=== PATIENT | female | born 1935 | race Caucasian/White ===

== ENCOUNTER 2017-11-05 14:48 | Emergency (ER) | payer MEDICARE, OTHER ==
[2017-11-05] MEDS ORDERED: Naproxen 500 MG Tab PO ONE (15:45)
[2017-11-05] MEDS ORDERED: Cyclobenzaprine 10 MG Tab PO ONE (15:45)
[2017-11-05] MEDS ORDERED: Ondansetron 4 MG Tab.DIS PO ONE (15:46)
[2017-11-05] MEDS ORDERED: Morphine 2 MG/ML Syringe IM ONE (15:46)
[2017-11-05] MEDS ORDERED: predniSONE 20 MG Tab PO ONE (15:46)
[2017-11-05 17:15] LABS: CHLORIDE,CL 108 mmol/L (98-107); SODIUM,NA 143 mmol/L (136-145)
[2017-11-05 17:19] LABS: ANION GAP 10.6 mmol/L (10-20)
[2017-11-05] MEDS ORDERED: Take Home: predniSONE 20 MG, 2 Tab Pack PO ONE (17:24)
[2017-11-05] MEDS ORDERED: Take Home: Cyclobenzaprine 10 MG Tab, 4 Tab Pack PO ONE (17:24)
[2017-11-05] MEDS ORDERED: Take Home: Acetaminophen/HYDROcodone 325-10 MG, 5 Tab Pack PO ONE (17:24)
--- NOTE | 2017-11-05 17:26 | EDM.PDOC ---
ED HPI GENERAL MEDICAL PROBLEM - General Chief Complaint: Back Pain or Injury Stated Complaint: er Time Seen by Provider: 11/05/17 15:16 Source of Information: Reports: Patient, EMS Notes Reviewed, Family History Limitations: Reports: No Limitations - History of Present Illness INITIAL COMMENTS - FREE TEXT/NARRATIVE: Patient states she has had progressively worsening back pain since she started using a walker that does not have front wheels. She states she uses that because her knees hurt. She thinks her back is reacting to having to pick pulling machine operator the walker with each step as well as having to pack it. She has no other complaints today. Her pain is to the point that EMS was called to bring her in and she is afraid that she will fall. Onset: Gradual Duration: Getting Worse Severity: Severe Improves with: Reports: Medication Associated Symptoms: Reports: No Other Symptoms Lower Back Pain Score (Numeric/FACES): 3 - Related Data Allergies Allergy/AdvReac Type Severity Reaction Status Date / Time No Known Allergies Allergy Verified 11/05/17 16:36 Home Meds: Home Meds . [No Known Home Meds] 11/05/17 [History] ED ROS GENERAL - Review of Systems Review Of Systems: See Below Constitutional: Reports: No Symptoms HEENT: Reports: No Symptoms Respiratory: Reports: No Symptoms Cardiovascular: Reports: No Symptoms Endocrine: Reports: No Symptoms GI/Abdominal: Reports: No Symptoms : Reports: No Symptoms Musculoskeletal: Reports: Back Pain Skin: Reports: No Symptoms Neurological: Reports: Difficulty Walking Psychiatric: Reports: No Symptoms Hematologic/Lymphatic: Reports: No Symptoms Immunologic: Reports: No Symptoms ED EXAM,LOWER BACK PAIN/INJURY - Physical Exam Exam: See Below Exam Limited By: No Limitations General Appearance: Alert, WD/WN, Moderate Distress Eye Exam: Bilateral Eye: EOMI, PERRL Ears: Normal TMs Neck: Normal Inspection, Supple, Non-Tender, Full Range of Motion Respiratory/Chest: No Respiratory Distress, Lungs Clear, Normal Breath Sounds, No Accessory Muscle Use, Chest Non-Tender Cardiovascular: Normal Peripheral Pulses, Regular Rate, Rhythm, No Edema, No Gallop, No JVD, No Murmur, No Rub GI/Abdominal: Normal Bowel Sounds, Soft, Non-Tender, No Organomegaly, No Distention, No Abnormal Bruit, No Mass Extremities: Leg Pain Neurological: Alert, Normal Mood/Affect, Oriented x 3, Straight Leg Raise (L), Straight Leg Raise (R) Psychiatric: Normal Mood, Anxious Skin Exam: Warm, Dry, Intact Lymphatic: No Adenopathy Course - Vital Signs Last Recorded V/S: Last Vital Signs Temp 37.0 C 11/05/17 14:55 Pulse 78 11/05/17 14:55 Resp 20 11/05/17 14:55 BP 147/90 H 11/05/17 14:55 Pulse Ox - Orders/Labs/Meds Orders: Active Orders 24 hr Category Date Time Status Lumbar Spine wo Cont [CT] Stat Exams 11/05/17 15:23 Taken Labs: Laboratory Tests 11/05/17 11/05/17 Range/Units 16:43 16:43 WBC 6.0 (4.0-10.0) x10^3/uL RBC 4.41 (4.00-5.50) x10^6/uL Hgb 12.5 (12.0-16.0) g/dL Hct 37.8 (33.0-47.0) % MCV 85.7 (78.0-93.0) fL MCH 28.3 (26.0-32.0) pg MCHC 33.1 (32.0-36.0) g/dL RDW Coeff of Edinson 16.8 H (10.0-15.0) % Plt Count 128 L (130-400) x10^3/uL Neut % (Auto) 66.8 (50.0-80.0) % Lymph % (Auto) 20.0 L (25.0-50.0) % [place] % (Auto) 10.7 (2.0-11.0) % Eos % (Auto) 2.2 (0.0-4.0) % Baso % (Auto) 0.3 (0.2-1.2) % Sodium 143 (136-145) mmol/L Potassium 3.6 (3.5-5.1) mmol/L Chloride 108 H (98-107) mmol/L Carbon Dioxide 28 (21-32) mmol/L Anion Gap 10.6 (10-20) mmol/L BUN 14 (7-18) mg/dL Creatinine 0.5 L (0.55-1.02) mg/dL Est Cr Clr Drug Dosing TNP Estimated GFR (MDRD) > 60 Glucose 89 (74-106) mg/dL Calcium 7.5 L (8.5-10.1) mg/dL Corrected Calcium 8.70 (8.5-10.1) mg/dL Total Bilirubin 0.3 (0.2-1.0) mg/dL AST 24 (15-37) U/L ALT 19 (14-59) U/L Alkaline Phosphatase 125 H (46-116) U/L Total Protein 6.1 L (6.4-8.2) g/dL Albumin 2.5 L (3.4-5.0) g/dL Globulin 3.6 Albumin/Globulin Ratio 0.69 Meds: Medications Discontinued Medications Generic Name Dose Route Start Last Admin Trade Name Freq PRN Reason Stop Dose Admin Hydrocodone Bitart/Acetaminophen 2 packet 11/05/17 17:24 11/05/17 18:17 Take Home: Acetaminophen/Hydrocodone 325-10mg PO 11/05/17 17:25 2 packet ONETIME ONE Administration Cyclobenzaprine HCl 10 mg 11/05/17 15:45 11/05/17 16:06 Flexeril PO 11/05/17 15:46 10 mg ONETIME ONE Administration Cyclobenzaprine HCl 2 packet 11/05/17 17:24 11/05/17 18:18 Take Home: Cyclobenzaprine 10 Mg, 4 Tab Pack PO 11/05/17 17:25 2 packet ONETIME ONE Administration Morphine Sulfate 2 mg 11/05/17 15:46 11/05/17 16:05 Morphine IM 11/05/17 15:47 2 mg ONETIME ONE Administration Naproxen 500 mg 11/05/17 15:45 11/05/17 16:07 Naprosyn PO 11/05/17 15:46 500 mg ONETIME ONE Administration Ondansetron HCl 4 mg 11/05/17 15:46 11/05/17 16:06 Zofran Odt PO 11/05/17 15:47 4 mg ONETIME ONE Administration Prednisone 40 mg 11/05/17 15:46 11/05/17 16:07 Prednisone PO 11/05/17 15:47 40 mg ONETIME ONE Administration Prednisone 2 packet 11/05/17 17:24 11/05/17 18:18 Take Home: Prednisone 20 Mg, 2 Tab Pack PO 11/05/17 17:25 2 packet ONETIME ONE Administration Departure - Departure Time of Disposition: 17:46 Disposition: Home, Self-Care 01 Condition: Fair Clinical Impression: Degenerative disc disease, lumbar - Discharge Information Instructions: Degenerative Disk Disease, Back Pain, Adult, [id number], Pain Medicine Instructions, [id number] Referrals: Justa Hodge DO [Primary Care Provider] - Forms: ED Department Discharge Additional Instructions: Alternate heat with ice on your back. You can also try a warm bath for pain relief. I have prescribed you hydrocodone for pain, flexeril for muscle spasms, and prednisone to reduce inflammation. I would also like you to take 600-800 mg of ibuprofen every 8 hours. Medication instructions: hydrocodone: 1/2-1 tablet every 4-6 hours by mouth Flexeril/cyclobenzaprine: take 1 table every 8 hours Prednisone: take 20 mg twice daily with food You may need to follow up with your primary doctor for additional complaints. I suggest a front wheeled walker. Try to walk and move as much as you can tolerate. Your back and muscles will get stiff otherwise and hurt more. Stay well hydrated. Call with any questions or concerns. - Problem List & Annotations (1) Degenerative disc disease, lumbar SNOMED Code(s): 45424745 Code(s): M51.36 - OTHER INTERVERTEBRAL DISC DEGENERATION, LUMBAR REGION Status: Acute Priority: Low - Problem List Review Problem List Initiated/Reviewed/Updated: Yes - My Orders Last 24 Hours: My Active Orders 11/05/17 15:23 Lumbar Spine wo Cont [CT] Stat - Assessment/Plan Last 24 Hours: My Active Orders 11/05/17 15:23 Lumbar Spine wo Cont [CT] Stat Assessment:: lumbar degenerative disc disease Plan: Alternate heat with ice on your back. You can also try a warm bath for pain relief. I have prescribed you hydrocodone for pain, flexeril for muscle spasms, and prednisone to reduce inflammation. I would also like you to take 600-800 mg of ibuprofen every 8 hours. Medication instructions: hydrocodone: 1/2-1 tablet every 4-6 hours by mouth Flexeril/cyclobenzaprine: take 1 table every 8 hours Prednisone: take 20 mg twice daily with food You may need to follow up with your primary doctor for additional complaints. I suggest a front wheeled walker. Try to walk and move as much as you can tolerate. Your back and muscles will get stiff otherwise and hurt more. Stay well hydrated. Call with any questions or concerns.
== END 2017-11-05 18:35 | disposition home or self-care (01) ==
LOC: VM.ED 14:48
DX: M51.36 Other intervertebral disc degeneration, lumbar region (principal)
CPT/HCPCS: 36415; 72131; 80053; 85025; 96372; 99284; A9270-GY; J2270

== ENCOUNTER 2017-11-07 11:25 | Observation (INO) | payer MEDICARE, OTHER ==
[2017-11-07 14:12] LABS: CHLORIDE,CL 109 mmol/L (98-107); SODIUM,NA 141 mmol/L (136-145)
[2017-11-07 14:16] LABS: ANION GAP 7.6 mmol/L (10-20)
[2017-11-07] MEDS ORDERED: Acetaminophen/HYDROcodone 325-5 MG Tab PO ONE (14:16)
--- NOTE | 2017-11-07 15:45 | EDM.PDOC ---
ED HPI GENERAL MEDICAL PROBLEM - General Chief Complaint: Lower Extremity Injury/Pain Stated Complaint: ER Time Seen by Provider: 11/07/17 11:41 Source of Information: Reports: Patient, Family, RN Notes Reviewed History Limitations: Reports: No Limitations - History of Present Illness INITIAL COMMENTS - FREE TEXT/NARRATIVE: Pt. relates that she is experiencing low back, R hip, and R knee pain. She was seen in the ER for the same on 11/05. She underwent a CT scan of her L spine which showed numerous levels of lumbar disk herniation. She was discharged with hydrocodone, cyclobenzaprine, and prednisone. She states that this has helped her discomfort, but the discomfort was quite severe today. She states that she was unable to get off the couch and had to call 911. Pt. doesn't utilize healthcare often, particularly preventative medicine. She was recently seen in the clinic and found to have a low heart rate but would not allow a workup. Pt. denies any trauma. She states that she has not fallen. Duration: Constant, Getting Worse Location: Reports: Back Quality: Reports: Sharp Severity: Severe Right Knee Pain Score (Numeric/FACES): 8 Lower Back Pain Score (Numeric/FACES): 8 - Related Data Allergies Allergy/AdvReac Type Severity Reaction Status Date / Time lorazepam Allergy Edema Verified 11/07/17 11:54 mirtazapine Allergy Cannot Verified 11/07/17 11:54 Remember Home Meds: Home Meds Aspirin 81 mg PO DAILY 11/07/17 [History] Calcium Carbonate/Vitamin D3 [Calcium 500 + Vit D Caplet] 1 each PO DAILY [History] Multivitamin [Multivitamins] 1 each PO DAILY 11/07/17 [History] Past Medical History HEENT History: Reports: Cataract, Other (See Below) Other HEENT History: presbyopia Cardiovascular History: Reports: Other (See Below) Other Cardiovascular History: irregular heart rhythm. peripheral edema Respiratory History: Reports: None Gastrointestinal History: Reports: Other (See Below) Other Gastrointestinal History: abnormal results of liver function study Genitourinary History: Reports: None FEED RESEARCH AIDE History: Reports: None Musculoskeletal History: Reports: Osteoporosis, Other (See Below) Other Musculoskeletal History: weakness Neurological History: Reports: None Psychiatric History: Reports: Anxiety Endocrine/Metabolic History: Reports: Other (See Below) Other Endocrine/Metabolic History: folate deficiency anemia Hematologic History: Reports: Other (See Below) Other Hematologic History: folate deficiency anemia Oncologic (Cancer) History: Reports: Breast Dermatologic History: Reports: None - Past Surgical History Head Surgeries/Procedures: Reports: None Respiratory Surgical History: Reports: None GI Surgical History: Reports: None Female Surgical History: Reports: Other (See Below) Other Female Surgeries/Procedures: Right breast removed 20 - 25 years ago. Endocrine Surgical History: Reports: None Neurological Surgical History: Reports: None Musculoskeletal Surgical History: Reports: None Oncologic Surgical History: Reports: Mastectomy Social & Family History - Tobacco Use Smoking Status *Q: Current Every Day Smoker Years of Tobacco use: 20 Packs/Tins Daily: 0.5 - Caffeine Use Caffeine Use: Reports: Coffee - Recreational Drug Use Recreational Drug Use: No Review of Systems - Review of Systems Review Of Systems: See Below Constitutional: Reports: Weakness Eyes: Reports: No Symptoms Ears: Reports: No Symptoms Nose: Reports: No Symptoms Mouth/Throat: Reports: No Symptoms Respiratory: Reports: No Symptoms Cardiovascular: Reports: No Symptoms GI/Abdominal: Reports: No Symptoms Genitourinary: Reports: No Symptoms Musculoskeletal: Reports: Back Pain Skin: Reports: No Symptoms Neurological: Reports: Paresthesia, Other (R lower extremity) Psychiatric: Reports: No Symptoms ED EXAM, GENERAL - Physical Exam Exam: See Below General Appearance: Alert, WD/WN, No Apparent Distress Throat/Mouth: Normal Inspection, Normal Lips, Normal Teeth, Normal Gums, Normal Oropharynx, Normal Voice, No Airway Compromise Head: Atraumatic, Normocephalic Neck: Normal Inspection, Supple, Non-Tender, Full Range of Motion Respiratory/Chest: No Respiratory Distress, Lungs Clear, Normal Breath Sounds, No Accessory Muscle Use, Chest Non-Tender Cardiovascular: Normal Peripheral Pulses, Regular Rate, Rhythm, No Edema, No Gallop, No JVD, No Murmur, No Rub GI/Abdominal: Normal Bowel Sounds, Soft, Non-Tender, No Distention, No Mass, Pelvis Stable (Female) Exam: Deferred Rectal (Female) Exam: Deferred Back Exam: Muscle Spasm, Paraspinal Tenderness, Vertebral Tenderness Extremities: Limited Range of Motion (pain with straight leg raise on the R. Also has knee pain. No deformity. CMS intact. No swelling/ecchymosis), Pallor Neurological: Alert, Oriented, CN II-XII Intact, Confused, Slow to Respond, Other (slow to respond since getting prehospital dilaudid) Psychiatric: Normal Affect, Normal Mood Skin Exam: Warm, Dry, Intact, Normal Color, No Rash Lymphatic: No Adenopathy EKG INTERPRETATION Rhythm: NSR EKG Interpretation Comments: Sinus rhythm with bigeminal unifocal PVCs Course - Vital Signs Last Recorded V/S: Last Vital Signs Temp 36.8 C 11/07/17 14:27 Pulse 89 11/07/17 14:27 Resp 18 11/07/17 14:27 BP 157/69 H 11/07/17 14:27 Pulse Ox 100 11/07/17 14:27 - Orders/Labs/Meds Orders: Active Orders 24 hr Category Date Time Status Patient Status [ADT] Routine ADT 11/07/17 14:14 Active EKG Documentation Completion [RC] STAT Care 11/07/17 13:31 Active Hip Min 2V or 3V w Pelvis Rt [CR] Stat Exams 11/07/17 12:14 Taken Knee 3V Rt [CR] Stat Exams 11/07/17 12:15 Taken Medication Orders Hydrocodone Bitart/Acetaminophen (Ackerly 325-5 Mg) 1 tab PO Q4H PRN PRN Reason: Pain Aspirin (Aspirin) 81 mg PO DAILY ECTOR Calcium Carbonate (Calcium Carbonate/Vitamin D 1250 Mg-200 Unit) 1 tab PO DAILY ECTOR Vitamin B Complex/Vit C/Vit E/Zinc (Stress Formula With Zinc) 1 tab PO DAILY ECTOR Labs: Laboratory Tests 11/07/17 11/07/17 11/07/17 Range/Units 13:40 13:40 13:40 WBC 9.6 (4.0-10.0) x10^3/uL RBC 4.08 (4.00-5.50) x10^6/uL Hgb 11.5 L (12.0-16.0) g/dL Hct 35.9 (33.0-47.0) % MCV 88.0 (78.0-93.0) fL MCH 28.2 (26.0-32.0) pg MCHC 32.0 (32.0-36.0) g/dL RDW Coeff of Edinson 16.9 H (10.0-15.0) % Plt Count 135 (130-400) x10^3/uL Neut % (Auto) 83.4 H (50.0-80.0) % Lymph % (Auto) 8.8 L (25.0-50.0) % [place] % (Auto) 7.4 (2.0-11.0) % Eos % (Auto) 0.3 (0.0-4.0) % Baso % (Auto) 0.1 L (0.2-1.2) % PT 22.6 H (9.6-11.4) SEC INR 2.2 (2.0-3.5) Sodium 141 (136-145) mmol/L Potassium 3.6 (3.5-5.1) mmol/L Chloride 109 H (98-107) mmol/L Carbon Dioxide 28 (21-32) mmol/L Anion Gap 7.6 L (10-20) mmol/L BUN 31 H (7-18) mg/dL Creatinine 0.6 (0.55-1.02) mg/dL Est Cr Clr Drug Dosing TNP Estimated GFR (MDRD) > 60 Glucose 89 (74-106) mg/dL Calcium 7.2 L (8.5-10.1) mg/dL Corrected Calcium 8.56 (8.5-10.1) mg/dL Phosphorus 2.7 (2.6-4.7) mg/dL Magnesium 1.7 L (1.8-2.4) mg/dL Total Bilirubin 0.3 (0.2-1.0) mg/dL AST 19 (15-37) U/L ALT 16 (14-59) U/L Alkaline Phosphatase 109 (46-116) U/L Troponin I < 0.017 (<=0.056) ng/mL Total Protein 5.6 L (6.4-8.2) g/dL Albumin 2.3 L (3.4-5.0) g/dL Globulin 3.3 Albumin/Globulin Ratio 0.70 Meds: Medications Generic Name Dose Route Start Last Admin Trade Name Freq PRN Reason Stop Dose Admin Hydrocodone Bitart/Acetaminophen 1 tab 11/07/17 15:09 Ackerly 325-5 Mg PO Q4H PRN Pain Aspirin 81 mg 11/08/17 08:00 Aspirin PO DAILY ECTOR Calcium Carbonate 1 tab 11/08/17 08:00 Calcium Carbonate/Vitamin D 1250 Mg-200 Unit PO DAILY ECTOR Vitamin B Complex/Vit C/Vit E/Zinc 1 tab 11/08/17 08:00 Stress Formula With Zinc PO DAILY ECTOR Discontinued Medications Generic Name Dose Route Start Last Admin Trade Name Delbert PRN Reason Stop Dose Admin Hydrocodone Bitart/Acetaminophen 1 tab 11/07/17 14:16 11/07/17 14:33 Ackerly 325-5 Mg PO 11/07/17 14:17 1 tab ONETIME ONE Administration Departure - Departure Time of Disposition: 14:39 Disposition: Refer to Observation Clinical Impression: Lumbar back pain with radiculopathy affecting right lower extremity, Bradycardia - Discharge Information - My Orders Last 24 Hours: My Active Orders 11/07/17 12:14 Hip Min 2V or 3V w Pelvis Rt [CR] Stat 11/07/17 12:15 Knee 3V Rt [CR] Stat 11/07/17 13:31 EKG Documentation Completion [RC] STAT 11/07/17 14:14 Patient Status [ADT] Routine - Assessment/Plan Last 24 Hours: My Active Orders 11/07/17 12:14 Hip Min 2V or 3V w Pelvis Rt [CR] Stat 11/07/17 12:15 Knee 3V Rt [CR] Stat 11/07/17 13:31 EKG Documentation Completion [RC] STAT 11/07/17 14:14 Patient Status [ADT] Routine Plan: Pt. will be admitted observation. She does not meet acute criteria. She is a code level 1. PT and OT to follow. Social work consult.
[2017-11-07] MEDS: Acetaminophen/HYDROcodone 325-5 MG Tab PO PRN (22:37)
[2017-11-08] MEDS: Aspirin 81 MG Tab.Chew PO SCH (09:03)
[2017-11-08] MEDS: Calcium Carbonate/Vitamin D3 1250 MG-200 Unit Tab PO SCH (09:03)
[2017-11-08] MEDS: Phytonadione 100 MCG Tab PO SCH (09:03)
[2017-11-08] MEDS: Multivitamin, Stress Formula with Zinc Tab PO SCH (09:03)
[2017-11-08] MEDS: Acetaminophen/HYDROcodone 325-5 MG Tab PO PRN ×2 (09:03→21:42)
[2017-11-08] MEDS: Ibuprofen 200 MG Tab PO SCH ×3 (14:59→19:43)
[2017-11-08] MEDS ORDERED: Triamcinolone Acetonide 40 MG/ML 1 ML MDV INJECT ONE (16:56)
[2017-11-08] MEDS ORDERED: Lidocaine 2% 10 ML Amp INJECT ONE (16:57)
--- NOTE | 2017-11-08 17:50 | OR ---
After discussing the risks and goals of a right knee injection, the area was prepped with ChloraPrep and 1% lidocaine was injected for local anesthesia. I then injected 40 mg of Kenalog and 3 mL of lidocaine into the joint space. The patient was having some tenderness during the procedure. She seemed otherwise tolerated okay, as she was quite agitated with just even touching the knee. She is given instructions to rest and ice the knee over the next 48 hours. MKA: 11/08/2017 17:38:51 MODL: 11/08/2017 17:45:13 /[id number]
--- NOTE | 2017-11-08 18:00 | PN ---
Progress Note for JEOVANNY PATEL Date: 11/08/2017 Room #: VM.217 SUBJECTIVE: This is hospital day #2 for an 82-year-old admitted yesterday with knee pain, back pain, and difficulty managing at home. The patient was just in the ER on 11/05. She had not have any falls, but had significant back pain. She had a back CT, which demonstrated her to have advanced degenerative changes at multiple levels. She states her knees, she cannot even bend it. It is so tender when you even touch it. It is not red or swollen. She has not had any fever or chills. She does have a history of anxiety and gets medical care very infrequently through Eden Hodge in the clinic. Otherwise, there was some reports of slow heart rate for her down into even the 30s. However, on telemetry, she has not had any events and slowest recorded heart rate this morning was about 59. PT did see her and they felt that she would require a knee injection and some more care as right now currently, she could not return home. She states using the walker because of her knee pain is what caused her back pain. OBJECTIVE: Vital Signs: Her temperature is 97.9, pulse 62, blood pressure 139/52, respiratory rate 16, and O2 96% on room air. General: She is in no acute distress. Heart: Regular rate and rhythm. S1, S2 without murmur. Lungs: Sounds are clear to auscultation bilaterally without crackles or wheezes. Extremities: Warm and dry. No edema. She has significant tenderness to palpation especially over the medial right knee, but no swelling, effusion, or warmth. Mental status: She is alert. She is orientated x3. She did remember that I was her previous doctor several years ago. LAB WORK: Yesterday, white count normal 9.6. Her INR was elevated at 2.2 despite not being on Coumadin. Sodium 141, potassium 3.6, chloride 109, BUN 31, creatinine 0.6, magnesium 1.7, and albumin 2.3. ASSESSMENT: 1. Severe right knee pain with some osteoarthritis by x-ray. Difficult to tell due to the positioning. However, I think it would be reasonable to try cortisone injection. 2. Back pain with degenerative arthritis. Could consider an HI, but she is not having any radicular symptoms. I think we will treat her with therapy. 3. Hypomagnesemia. We will replace orally. It might help some of her aches and pains. 4. Elevated INR, could be due to some malnutrition. We will start her on low- dose vitamin K. 5. Moderate malnutrition. She is very thin and frail. She most definitely has underlying osteoporosis. We will encourage good oral intake. 6. Mild anemia. We will repeat lab work tomorrow. 7. History of anxiety. She currently lives at home with her . PLAN: At this point, the patient will continue on observation care, with hopeful she could return home this evening. However, she does not feel like she will be able to. She will continue with telemetry to ensure no bradycardia. We will repeat lab work in the morning. We will replace electrolytes. She is on hydrocodone as needed for pain control and she took only one last evening and one this morning, so we will continue to monitor that closely. I would be concerned about too many NSAIDs given her age and frailty, but she did get a Motrin scheduled this afternoon and we could certainly do that for the next 2 days to see if it gets her up and moving. She elects to be a code level 1. The potential is that she may need to go over to self-pay swing or at least home with home health tomorrow. Dr. Del Toro is aware and will follow the patient. I am going to hold off on any Lovenox for DVT prophylaxis to ensure her hemoglobin is stable and if she goes home within 48 hours, it is a definite possibility. Otherwise, we would start Lovenox. However, INR is elevated, so we would definitely repeat to confirm that tomorrow prior to doing Lovenox, so we will put on SCDs. MKA: 11/08/2017 17:37:09 MODL: 11/08/2017 17:53:18 /[id number]
[2017-11-08] MEDS: Magnesium Oxide 400 MG Tab PO SCH ×2 (18:58→21:38)
[2017-11-09] MEDS: Magnesium Oxide 400 MG Tab PO SCH (07:52)
[2017-11-09] MEDS: Calcium Carbonate/Vitamin D3 1250 MG-200 Unit Tab PO SCH (07:52)
[2017-11-09] MEDS: Aspirin 81 MG Tab.Chew PO SCH (07:52)
[2017-11-09] MEDS: Multivitamin, Stress Formula with Zinc Tab PO SCH (07:52)
[2017-11-09] MEDS: Phytonadione 100 MCG Tab PO SCH (07:52)
[2017-11-09] MEDS: Ibuprofen 200 MG Tab PO SCH (07:52)
[2017-11-09] MEDS: Acetaminophen/HYDROcodone 325-5 MG Tab PO PRN (07:53)
--- NOTE | 2017-11-09 08:06 | PCM.DCSUM1 ---
Discharge Summary - Hospital Course Brief History: Mrs. Beck is an 82 yo female admitted for pain control regarding right knee pain, felt to be secondary to flare of DJD. - Discharge Data Discharge Date: 11/09/17 Discharge Disposition: DC/Tfer W/I Hosp To Swing 61 Condition: Good - Discharge Diagnosis/Problem(s) (1) Right knee DJD SNOMED Code(s): 294917193036307 ICD Code: M17.11 - UNILATERAL PRIMARY OSTEOARTHRITIS, RIGHT KNEE Status: Acute Current Visit: Yes (2) Degenerative disc disease, lumbar SNOMED Code(s): 92120107 ICD Code: M51.36 - OTHER INTERVERTEBRAL DISC DEGENERATION, LUMBAR REGION Status: Acute Priority: Low Current Visit: No (3) Bradycardia SNOMED Code(s): 66548939 ICD Code: R00.1 - BRADYCARDIA, UNSPECIFIED Status: Acute Current Visit: Yes (4) Elevated INR SNOMED Code(s): 313284632 ICD Code: R79.1 - ABNORMAL COAGULATION PROFILE Status: Acute Current Visit: Yes (5) Anemia SNOMED Code(s): 040586152 ICD Code: D64.9 - ANEMIA, UNSPECIFIED Status: Chronic Current Visit: No Qualifiers: Anemia type: unspecified type Qualified Code(s): D64.9 - Anemia, unspecified - Patient Summary/Data Operative Procedure(s) Performed: none Complications: none Consults: Consultations 11/07/17 15:16 PT Evaluation and Treatment [CONS] Routine 11/07/17 15:17 OT Evaluation and Treatment [CONS] Routine 11/07/17 15:53 Consult to Ballistician [CONS] Routine Labs Pending at D/C: none Recommended Follow-up Testing/Procedures: INR, CBC Planned Operative Procedure(s) after DC: none Hospital Course: She was treated with norco and motrin for pain management. She also received a right knee injection yesterday. She did not get much relief with the injection. She states her pain is about the same as admission but per exam seems to be moving it better. Nursing staff also notes that she is objectively moving much better today despite the patient's ongoing complaints of pain. PT did see the patient yesterday and recommended additional rehab prior to discharge home unless the injection gave significant relief. I did talk with the patient about this today. She does not have any reason to be on acute cares and is reaching 48 hours of observation. Therefore, the only option would be to transition her to self pay swing bed. Discussed estimated cost of this and she initially declined to remain on self pay swing bed. After her and a family friend arrived, she was agreeable to stay at least over the weekend. There were reports of bradycardia on admission but this has not been documented on telemetry during her hospital stay. She was incidentally noted to have an elevated INR, which will need further work-up by her PCP. Her hemoglobin was low but stable and will also need to be followed up by her PCP. In the midst of this discussion, she did make a comment about overdosing on her pills. Nursing did a suicide assessment and she was low risk. Later when she was asked about this, she stated she was joking. Her family and friend agree that she would never do this and that she was making a joke. She does not have access to do this in the hospital but we will monitor her closely for any changes in behavior. - Patient Instructions Diet: Usual Diet as Tolerated Activity: As Tolerated - Discharge Plan Prescriptions/Med Rec: Acetaminophen/HYDROcodone [[place] 325-5 MG] 1 tab PO Q4H PRN #12 tablet PRN Reason: Pain Phytonadione [Vitamin K] 100 mcg PO DAILY #30 tablet Home Medications: Home Meds Aspirin 81 mg PO DAILY 11/07/17 [History] Calcium Carbonate/Vitamin D3 [Calcium 500 + Vit D Caplet] 1 each PO DAILY [History] Multivitamin [Multivitamins] 1 each PO DAILY 11/07/17 [History] Acetaminophen/HYDROcodone [[place] 325-5 MG] 1 tab PO Q4H PRN #12 tablet 11/09/17 [Rx] Ibuprofen [Motrin] 400 mg PO TID tablet 11/09/17 [Rx] Magnesium Oxide 400 mg PO BID tablet 11/09/17 [Rx] Phytonadione [Vitamin K] 100 mcg PO DAILY #30 tablet 11/09/17 [Rx] Forms: ED Department Discharge Referrals: Justa Hodge DO [Primary Care Provider] - - Discharge Summary/Plan Comment DC Time >30 min.: No - General Info Date of Service: 11/09/17 Subjective Update: Patient states her pain is about the same as admission. Is moving about her exam room without any issue and without any assistance besides her walker. Nursing staff note that she seems to be moving about more easily today than yesterday. No falls. No other new symptoms. - Review of Systems General: Reports: No Symptoms HEENT: Reports: No Symptoms Pulmonary: Reports: No Symptoms Cardiovascular: Reports: No Symptoms Gastrointestinal: Reports: No Symptoms Genitourinary: Reports: No Symptoms Skin: Reports: No Symptoms - Patient Data Vitals - Most Recent: Last Vital Signs Temp 36.3 C 11/09/17 05:22 Pulse 60 11/09/17 05:22 Resp 18 11/09/17 05:22 BP 140/57 L 11/09/17 05:22 Pulse Ox 97 11/09/17 05:22 Weight - Most Recent: 43.998 kg I&O - Last 24 hours: Intake & Output 11/08/17 11/09/17 11/09/17 22:59 06:59 14:59 Intake Total 860 620 Output Total 1850 Balance 860 -1230 Med Orders - Current: Current Medications Hydrocodone Bitart/Acetaminophen ([place] 325-5 Mg) 1 tab PO Q4H PRN PRN Reason: Pain Last Admin: 11/09/17 07:53 Dose: 1 tab Aspirin (Aspirin) 81 mg PO DAILY [facility] Last Admin: 11/09/17 07:52 Dose: 81 mg Calcium Carbonate (Calcium Carbonate/Vitamin D 1250 Mg-200 Unit) 1 tab PO DAILY [facility] Last Admin: 11/09/17 07:52 Dose: 1 tab Ibuprofen (Motrin) 400 mg PO TID [facility] Last Admin: 11/09/17 07:52 Dose: 400 mg Magnesium Oxide (Magnesium Oxide) 400 mg PO BID [facility] Last Admin: 11/09/17 07:52 Dose: 400 mg Phytonadione (Vitamin K) 100 mcg PO DAILY [facility] Last Admin: 11/09/17 07:52 Dose: 100 mcg Vitamin B Complex/Vit C/Vit E/Zinc (Stress Formula With Zinc) 1 tab PO DAILY [facility] Last Admin: 11/09/17 07:52 Dose: 1 tab Discontinued Medications Hydrocodone Bitart/Acetaminophen ([place] 325-5 Mg) 1 tab PO ONETIME ONE Stop: 11/07/17 14:17 Last Admin: 11/07/17 14:33 Dose: 1 tab Lidocaine HCl (Xylocaine-Mpf 1%) 5 ml INJECT ONETIME ONE Stop: 11/08/17 17:10 Last Admin: 11/08/17 17:33 Dose: 5 ml Triamcinolone Acetonide (Kenalog-40) 40 mg INJECT ONETIME ONE Stop: 11/08/17 16:57 Last Admin: 11/08/17 17:33 Dose: 40 mg - Exam General: Reports: Alert, Cooperative, No Acute Distress HEENT: Reports: Mucous Membr. Moist/[place] Neck: Reports: Supple, Trachea Midline, No Thyromegaly. Denies: Lymphadenopathy Lungs: Reports: Clear to Auscultation, Normal Respiratory Effort Cardiovascular: Reports: Regular Rate, Regular Rhythm, No Murmurs GI/Abdominal Exam: Normal Bowel Sounds, Soft, Non-Tender, No Organomegaly, No Distention, No Mass Extremities: No Pedal Edema, Normal Capillary Refill, Other (Right knee with near normal range of motion. Is normal in appearance and without any erythema or edema.) Skin: Reports: Warm, Dry, Intact
[2017-11-09 08:20] LABS: CHLORIDE,CL 110 mmol/L (98-107); SODIUM,NA 144 mmol/L (136-145)
[2017-11-09 08:23] LABS: ANION GAP 10.2 mmol/L (10-20)
== END 2017-11-09 10:42 | disposition swing bed (61) ==
LOC: VM.ED 11:25 → VM.MS 14:14
PROVIDERS: ADMIT Physician Assistant; ATTEND Physician Assistant
DX: M17.11 Unilateral primary osteoarthritis, right knee (principal); M51.16 Intervertebral disc disorders with radiculopathy, lumbar region; M81.0 Age-related osteoporosis without current pathological fracture; F41.9 Anxiety disorder, unspecified; D52.9 Folate deficiency anemia, unspecified; F17.210 Nicotine dependence, cigarettes, uncomplicated; R79.1 Abnormal coagulation profile; Z79.82 Long term (current) use of aspirin; Z79.899 Other long term (current) drug therapy; Z88.8 Allergy status to other drugs, medicaments and biological substances
CPT/HCPCS: 36415; 73562-RT; 80048; 80053; 83735; 84100; 84484; 85025; 85610; 93005; 97162-GP; 97165-GO; 99285; A9270-GY; G0378; J3301

== ENCOUNTER 2017-11-09 10:45 | Inpatient (IN) | payer MEDICARE, OTHER ==
[2017-11-09] MEDS ORDERED: Acetaminophen/HYDROcodone 325-5 MG Tab PO PRN (11:29)
--- NOTE | 2017-11-09 11:30 | PCM.HP ---
H&P History of Present Illness - General Date of Service: 11/09/17 Admit Problem/Dx: Admission Diagnosis/Problem Admission Diagnosis/Problem Weakness Source of Information: Patient History Limitations: Reports: No Limitations - History of Present Illness Initial Comments - Free Text/Narative: Mrs. Beck is an 82 yo female admitted to swing bed for assistance with ADL's and strengthening after an observation admission for pain control related to a flare of right knee DJD and lumbar spine DDD. The patient does not feel her pain is improved at all; however, both nursing staff and her family note improvement compared to admission. The patient will admit that her mobility has improved somewhat and she is able to move her knee (albeit painfully) more easily than she was at the time of initial admission. No new symptoms. No redness, swelling, or pain. No falls. She has not had any fever or chills. PT did evaluate her during her observation stay and felt she would benefit from ongoing strengthening. It was discussed with the patient and her family that swing bed would not be covered by insurance and she voiced understanding and agreement to transition to self pay swing bed today. - Related Data Allergies/Adverse Reactions: Allergies Allergy/AdvReac Type Severity Reaction Status Date / Time lorazepam Allergy Edema Verified 11/07/17 11:54 mirtazapine Allergy Cannot Verified 11/07/17 11:54 Remember Home Medications: Home Meds Aspirin 81 mg PO DAILY 11/07/17 [History] Calcium Carbonate/Vitamin D3 [Calcium 500 + Vit D Caplet] 1 each PO DAILY [History] Acetaminophen/HYDROcodone [[place] 325-5 MG] 1 tab PO Q4H PRN #12 tablet 11/09/17 [Rx] Ibuprofen [Motrin] 400 mg PO TID tablet 11/09/17 [Rx] Magnesium Oxide 400 mg PO BID tablet 11/09/17 [Rx] Multivitamins with Zinc [Stress Formula with Zinc] 1 each PO DAILY 11/09/17 [ History] Phytonadione [Vitamin K] 100 mcg PO DAILY #30 tablet 11/09/17 [Rx] Past Medical History HEENT History: Reports: Cataract, Other (See Below) Other HEENT History: presbyopia Cardiovascular History: Reports: Other (See Below) Other Cardiovascular History: irregular heart rhythm. peripheral edema Respiratory History: Reports: None Gastrointestinal History: Reports: Other (See Below) Other Gastrointestinal History: abnormal results of liver function study Genitourinary History: Reports: None CREDIT AND COLLECTIONS REPRESENTATIVE History: Reports: None Musculoskeletal History: Reports: Osteoporosis, Other (See Below) Other Musculoskeletal History: weakness Neurological History: Reports: None Psychiatric History: Reports: Anxiety Endocrine/Metabolic History: Reports: Other (See Below) Other Endocrine/Metabolic History: folate deficiency anemia Hematologic History: Reports: Other (See Below) Other Hematologic History: folate deficiency anemia Oncologic (Cancer) History: Reports: Breast Dermatologic History: Reports: None - Past Surgical History Head Surgeries/Procedures: Reports: None Respiratory Surgical History: Reports: None GI Surgical History: Reports: None Female Surgical History: Reports: Other (See Below) Other Female Surgeries/Procedures: Right breast removed 20 - 25 years ago. Endocrine Surgical History: Reports: None Neurological Surgical History: Reports: None Musculoskeletal Surgical History: Reports: None Oncologic Surgical History: Reports: Mastectomy Social & Family History - Family History Cardiac: Reports: High Cholesterol, Hypertension, PR Neurological: Reports: CVA Endocrine/Metabolic: Reports: Diabetes, type II - Tobacco Use Smoking Status *Q: Current Some Day Smoker - Caffeine Use Caffeine Use: Reports: Coffee - Alcohol Use Alcohol Use History: No Alcohol Use in Last Twelve Months: No - Recreational Drug Use Recreational Drug Use: No - Living Situation & Occupation Living situation: Reports: , with Significant Other Occupation: Retired H&P Review of Systems - Review of Systems: Review Of Systems: See Below General: Reports: No Symptoms HEENT: Reports: No Symptoms Pulmonary: Reports: No Symptoms Cardiovascular: Reports: No Symptoms Gastrointestinal: Reports: No Symptoms Genitourinary: Reports: No Symptoms Musculoskeletal: Reports: Back Pain, Leg Pain Skin: Reports: No Symptoms Psychiatric: Reports: No Symptoms Neurological: Reports: No Symptoms Exam - Exam Exam: See Below - Exam General: Alert, Cooperative HEENT: Mucosa Moist & [place], Pupils Equal, Pupils Reactive Neck: Supple, Trachea Midline. No: Lymphadenopathy, Thyromegaly Lungs: Clear to Auscultation, Normal Respiratory Effort Cardiovascular: Regular Rate, Regular Rhythm, Normal S1, Normal S2 GI/Abdominal Exam: Normal Bowel Sounds, Soft, Non-Tender, No Organomegaly, No Distention, No Mass Extremities: Normal Inspection, No Pedal Edema, Other (right knee with near normal ROM) Peripheral Pulses: 2+: Radial (L), Radial (R) Skin: Warm, Dry, Intact *Q Meaningful Use (ADM) - VTE *Q VTE Pharmacological Contraindications *Q: High INR Value - Problem List (1) Right knee DJD SNOMED Code(s): 906898121111669 ICD Code: M17.11 - UNILATERAL PRIMARY OSTEOARTHRITIS, RIGHT KNEE Status: Acute Current Visit: No (2) Degenerative disc disease, lumbar SNOMED Code(s): 10550552 ICD Code: M51.36 - OTHER INTERVERTEBRAL DISC DEGENERATION, LUMBAR REGION Status: Acute Priority: Low Current Visit: No (3) Bradycardia SNOMED Code(s): 07034887 ICD Code: R00.1 - BRADYCARDIA, UNSPECIFIED Status: Acute Current Visit: No (4) Elevated INR SNOMED Code(s): 813172891 ICD Code: R79.1 - ABNORMAL COAGULATION PROFILE Status: Acute Current Visit: No (5) Anemia SNOMED Code(s): 800444057 ICD Code: D64.9 - ANEMIA, UNSPECIFIED Status: Chronic Current Visit: No Qualifiers: Anemia type: unspecified type Qualified Code(s): D64.9 - Anemia, unspecified (6) Osteoporosis SNOMED Code(s): 43416580 ICD Code: M81.0 - AGE-RELATED OSTEOPOROSIS W/O CURRENT PATHOLOGICAL FRACTURE Status: Chronic Current Visit: No Problem List Initiated/Reviewed/Updated: Yes Orders Last 24hrs: Active Orders 24 hr Category Date Time Status Patient Status [ADT] Routine ADT 11/09/17 10:45 Active Notify Provider Vital Signs [RC] ASDIRECTED Care 11/09/17 11:28 Ordered Oxygen Therapy [RC] PRN Care 11/09/17 11:28 Ordered Up With Assistance [RC] ASDIRECTED Care 11/09/17 11:28 Ordered VTE/DVT Education [RC] PER UNIT ROUTINE Care 11/09/17 11:28 Ordered Vital Signs [RC] PER UNIT ROUTINE Care 11/09/17 11:28 Ordered PT Evaluation and Treatment [CONS] Routine Cons 11/09/17 11:28 Ordered Regular Diet [DIET] Diet 11/09/17 Lunch Ordered Acetaminophen/HYDROcodone [[place] 325-5 MG] Med 11/09/17 11:29 Ordered 1 tab PO Q4H PRN Aspirin Med 11/10/17 08:00 Ordered 81 mg PO DAILY Calcium Carbonate/Vitamin D3 [Calcium 500 + Vit D Med 11/10/17 08:00 Ordered Caplet] 1 each PO DAILY Ibuprofen [Motrin] Med 11/09/17 12:00 Ordered 400 mg PO TID Magnesium Oxide Med 11/09/17 20:00 Ordered 400 mg PO BID Multivitamins with Zinc [Stress Formula with Zinc] Med 11/10/17 08:00 Ordered 1 each PO DAILY Sequential Compression Device [OM.PC] Routine Oth 11/09/17 11:28 Ordered VTE Pharmacological Contraindications [AST] Per Unit Oth 11/09/17 11:28 Ordered Routine Resuscitation Status Routine Resus Stat 11/09/17 11:28 Ordered Assessment/Plan Comment:: #1 Right Knee DJD #2 Lumbar Spine DDD - Patient's pain is objectively improved. - Nursing will continue to work with her on mobility over the weekend. Hopefully , PT will be able to see her on Saturday. - She will need follow-up with her PCP and likely orthopedics upon discharge. #3 Bradycardia #4 Elevated INR #5 Anemia #6 Osteoporosis - She will need follow-up for the above with her PCP. - Nothing acute identified during observation stay. - Hold further dosing of vitamin K. - Otherwise, all medications continued from observation stay. - She will remain on swing bed until Saturday and then make further decisions after that. - She wishes to be full code. - Will do SCD's for VTE prophylaxis. No pharmacologic prophylaxis in the setting of the elevated INR.
[2017-11-09] MEDS: Ibuprofen 200 MG Tab PO SCH ×2 (12:03→20:32)
[2017-11-09] MEDS: Magnesium Oxide 400 MG Tab PO SCH (20:34)
[2017-11-10] MEDS: Aspirin 81 MG Tab.EC PO SCH (08:01)
[2017-11-10] MEDS: Calcium Carbonate/Vitamin D3 1250 MG-200 Unit Tab PO SCH (08:01)
[2017-11-10] MEDS: Ibuprofen 200 MG Tab PO SCH ×3 (08:01→20:24)
[2017-11-10] MEDS: Multivitamin, Stress Formula with Zinc Tab PO SCH (08:01)
[2017-11-10] MEDS: Magnesium Oxide 400 MG Tab PO SCH ×2 (08:01→20:25)
[2017-11-11] MEDS: Ibuprofen 200 MG Tab PO SCH (08:15)
[2017-11-11] MEDS: Calcium Carbonate/Vitamin D3 1250 MG-200 Unit Tab PO SCH (08:15)
[2017-11-11] MEDS: Multivitamin, Stress Formula with Zinc Tab PO SCH (08:15)
[2017-11-11] MEDS: Magnesium Oxide 400 MG Tab PO SCH ×2 (08:16→20:35)
[2017-11-11] MEDS: Aspirin 81 MG Tab.EC PO SCH (08:16)
[2017-11-11] MEDS ORDERED: Acetaminophen 325 MG Tab PO PRN (08:39)
--- NOTE | 2017-11-11 09:57 | PN ---
Progress Note for JEOVANNY PATEL Date: 11/11/2017 Room #: VM.217 SUBJECTIVE: This is an 82-year-old on swing bed after being admitted with right knee pain and back pain, inability to manage at home. She had been in the PT Clinic in the last month for this knee pain. She had walked into the clinic. X - rays were not showing any severe [id number] arthritis, but we did try an injection on Saturday. She states that it did not help at all. Staff was saying she even got up and walked a little bit on her own, so they feel like things may be improving. She has been on scheduled Motrin. She has no stomach pain or irritation. She has not taken any narcotics over the last 24 hours. She is not short of breath. She had a large bowel movement this morning. OBJECTIVE: Vital Signs: Her temperature is 98.2, pulse 59, blood pressure 140/52, respiratory rate 18, and O2 of 94% on room air. General: She is in mild acute distress. She is extremely anxious. She is very tender to touch anywhere. I would suspect that she has at least some fibromyalgia. Heart: Regular rate and rhythm. S1 and S2 without murmur. Lungs: Sounds are clear to auscultation bilaterally without crackles or wheezes. Extremities: Warm and dry with no edema. Mental Status: Alert and orientated x3. ASSESSMENT: 1. Right knee pain with some osteoarthritis. This has been going on at least for 1 month. We tried a cortisone injection. We will get PT working with her. We will do ice and wraps. We will have scheduled Tylenol now. 2. Generalized pain, likely fibromyalgia. I am going to start some Neurontin. 3. Degenerative disk disease of the spine. Neurontin should help for this as well. 4. History of anemia. We will go ahead and stop the Motrin as she has been on it now about 72 hours. Switch her over to Tylenol. Her last hemoglobin was actually up to 12.9. 5. Elevated INR. We gave her some vitamin K low dose, it was down to 1.6. 6. Moderate malnutrition. Albumin is 2.3. 7. Underlying anxiety. She is currently not on any treatments. She actually used to take benzodiazepines in the past. Consider cymbalta to help with pain also. 8. Osteoporosis. 9. Bradycardia, asymptomatic. PLAN: At this point, the patient will continue on swing bed cares. We will get PT working with her today. I would encourage her to try going home with home health, but at this point, she does not feel that will be able. We discussed with her code status and CPR. She tells me that she would not want to have a breathing tube or be resuscitated. Given her age and frailty, I do feel that this is appropriate; therefore, she was switched over to code level 3. We will try the Neurontin. Hopefully, this will help her pain. Anticipate discharge home soon. Social Service is involved as well. MIKEA: 11/11/2017 08:49:24 MODL: 11/11/2017 09:50:18 /[id number] KILO
[2017-11-11] MEDS: Gabapentin 100 MG Cap PO SCH ×2 (10:35→20:36)
[2017-11-11] MEDS: Acetaminophen 325 MG Tab PO SCH ×2 (12:05→20:36)
[2017-11-12] MEDS: Acetaminophen 325 MG Tab PO SCH ×3 (07:58→20:33)
[2017-11-12] MEDS: Gabapentin 100 MG Cap PO SCH ×2 (07:59→20:33)
[2017-11-12] MEDS: Calcium Carbonate/Vitamin D3 1250 MG-200 Unit Tab PO SCH (07:59)
[2017-11-12] MEDS: Multivitamin, Stress Formula with Zinc Tab PO SCH (07:59)
[2017-11-12] MEDS: Magnesium Oxide 400 MG Tab PO SCH ×2 (07:59→20:33)
[2017-11-12] MEDS: Aspirin 81 MG Tab.EC PO SCH (07:59)
[2017-11-13] MEDS: Magnesium Oxide 400 MG Tab PO SCH ×2 (07:32→19:50)
[2017-11-13] MEDS: Multivitamin, Stress Formula with Zinc Tab PO SCH (07:32)
[2017-11-13] MEDS: Aspirin 81 MG Tab.EC PO SCH (07:32)
[2017-11-13] MEDS: Acetaminophen 325 MG Tab PO SCH ×3 (07:32→19:49)
[2017-11-13] MEDS: Gabapentin 100 MG Cap PO SCH (07:32)
[2017-11-13] MEDS: Calcium Carbonate/Vitamin D3 1250 MG-200 Unit Tab PO SCH (07:32)
[2017-11-14] MEDS: Magnesium Oxide 400 MG Tab PO SCH ×2 (07:13→20:05)
[2017-11-14] MEDS: Calcium Carbonate/Vitamin D3 1250 MG-200 Unit Tab PO SCH (07:13)
[2017-11-14] MEDS: Multivitamin, Stress Formula with Zinc Tab PO SCH (07:13)
[2017-11-14] MEDS: Aspirin 81 MG Tab.EC PO SCH (07:13)
[2017-11-14] MEDS: Acetaminophen 325 MG Tab PO SCH ×3 (07:14→20:04)
[2017-11-15] MEDS: Acetaminophen 325 MG Tab PO SCH ×3 (08:15→20:42)
[2017-11-15] MEDS: Aspirin 81 MG Tab.EC PO SCH (08:16)
[2017-11-15] MEDS: Multivitamin, Stress Formula with Zinc Tab PO SCH (08:16)
[2017-11-15] MEDS: Calcium Carbonate/Vitamin D3 1250 MG-200 Unit Tab PO SCH (08:16)
[2017-11-15] MEDS: Magnesium Oxide 400 MG Tab PO SCH ×2 (08:16→20:41)
[2017-11-16] MEDS: Acetaminophen 325 MG Tab PO SCH ×3 (09:54→20:46)
[2017-11-16] MEDS: Multivitamin, Stress Formula with Zinc Tab PO SCH (09:55)
[2017-11-16] MEDS: Aspirin 81 MG Tab.EC PO SCH (09:56)
[2017-11-16] MEDS: Magnesium Oxide 400 MG Tab PO SCH ×2 (09:56→20:46)
[2017-11-16] MEDS: Calcium Carbonate/Vitamin D3 1250 MG-200 Unit Tab PO SCH (09:59)
[2017-11-17] MEDS: Magnesium Oxide 400 MG Tab PO SCH ×2 (08:57→20:51)
[2017-11-17] MEDS: Aspirin 81 MG Tab.EC PO SCH (08:57)
[2017-11-17] MEDS: Acetaminophen 325 MG Tab PO SCH ×3 (08:57→20:52)
[2017-11-17] MEDS: Calcium Carbonate/Vitamin D3 1250 MG-200 Unit Tab PO SCH (08:57)
[2017-11-17] MEDS: Multivitamin, Stress Formula with Zinc Tab PO SCH (08:57)
[2017-11-18] MEDS: Aspirin 81 MG Tab.EC PO SCH (08:10)
[2017-11-18] MEDS: Acetaminophen 325 MG Tab PO SCH ×3 (08:10→19:52)
[2017-11-18] MEDS: Calcium Carbonate/Vitamin D3 1250 MG-200 Unit Tab PO SCH (08:10)
[2017-11-18] MEDS: Magnesium Oxide 400 MG Tab PO SCH ×2 (08:10→19:52)
[2017-11-18] MEDS: Multivitamin, Stress Formula with Zinc Tab PO SCH (08:11)
[2017-11-19] MEDS: Magnesium Oxide 400 MG Tab PO SCH ×2 (08:03→20:41)
[2017-11-19] MEDS: Multivitamin, Stress Formula with Zinc Tab PO SCH (08:03)
[2017-11-19] MEDS: Calcium Carbonate/Vitamin D3 1250 MG-200 Unit Tab PO SCH (08:03)
[2017-11-19] MEDS: Acetaminophen 325 MG Tab PO SCH ×3 (08:03→20:42)
[2017-11-19] MEDS: CLONAZEPAM 0.5 MG PO PRN ×2 (08:03→20:44)
[2017-11-19] MEDS: Aspirin 81 MG Tab.EC PO SCH (08:03)
[2017-11-20] MEDS: Calcium Carbonate/Vitamin D3 1250 MG-200 Unit Tab PO SCH (08:25)
[2017-11-20] MEDS: Aspirin 81 MG Tab.EC PO SCH (08:25)
[2017-11-20] MEDS: Multivitamin, Stress Formula with Zinc Tab PO SCH (08:25)
[2017-11-20] MEDS: Magnesium Oxide 400 MG Tab PO SCH ×2 (08:25→19:40)
[2017-11-20] MEDS: Acetaminophen 325 MG Tab PO SCH ×3 (08:25→19:38)
[2017-11-20] MEDS: CLONAZEPAM 0.5 MG PO PRN (08:25)
[2017-11-20] MEDS: GABAPENTIN 100 MG PO SCH ×3 (12:30→21:35)
[2017-11-21] MEDS: GABAPENTIN 100 MG PO SCH ×3 (08:01→19:41)
[2017-11-21] MEDS: Multivitamin, Stress Formula with Zinc Tab PO SCH (08:02)
[2017-11-21] MEDS: Acetaminophen 325 MG Tab PO SCH ×3 (08:02→19:41)
[2017-11-21] MEDS: Magnesium Oxide 400 MG Tab PO SCH ×2 (08:02→19:40)
[2017-11-21] MEDS: Calcium Carbonate/Vitamin D3 1250 MG-200 Unit Tab PO SCH (08:02)
[2017-11-21] MEDS: Aspirin 81 MG Tab.EC PO SCH (08:02)
[2017-11-21] MEDS: CLONAZEPAM 0.5 MG PO PRN ×2 (20:30→20:34)
[2017-11-22] MEDS: Multivitamin, Stress Formula with Zinc Tab PO SCH (08:17)
[2017-11-22] MEDS: Aspirin 81 MG Tab.EC PO SCH (08:17)
[2017-11-22] MEDS: Magnesium Oxide 400 MG Tab PO SCH ×2 (08:18→20:26)
[2017-11-22] MEDS: Acetaminophen 325 MG Tab PO SCH ×3 (08:18→20:26)
[2017-11-22] MEDS: GABAPENTIN 100 MG PO SCH ×3 (08:18→20:25)
[2017-11-22] MEDS: Calcium Carbonate/Vitamin D3 1250 MG-200 Unit Tab PO SCH (08:18)
[2017-11-23] MEDS: Aspirin 81 MG Tab.EC PO SCH (08:31)
[2017-11-23] MEDS: Magnesium Oxide 400 MG Tab PO SCH ×2 (08:31→20:53)
[2017-11-23] MEDS: Multivitamin, Stress Formula with Zinc Tab PO SCH (08:31)
[2017-11-23] MEDS: Acetaminophen 325 MG Tab PO SCH ×3 (08:32→20:53)
[2017-11-23] MEDS: Calcium Carbonate/Vitamin D3 1250 MG-200 Unit Tab PO SCH (08:33)
[2017-11-23] MEDS: GABAPENTIN 100 MG PO SCH ×3 (08:34→20:52)
[2017-11-23] MEDS: CLONAZEPAM 0.5 MG PO PRN (20:54)
[2017-11-24] MEDS: GABAPENTIN 100 MG PO SCH ×3 (07:58→20:33)
[2017-11-24] MEDS: Acetaminophen 325 MG Tab PO SCH ×3 (07:58→20:33)
[2017-11-24] MEDS: Calcium Carbonate/Vitamin D3 1250 MG-200 Unit Tab PO SCH (08:00)
[2017-11-24] MEDS: Multivitamin, Stress Formula with Zinc Tab PO SCH (08:00)
[2017-11-24] MEDS: Magnesium Oxide 400 MG Tab PO SCH ×2 (08:01→20:32)
[2017-11-24] MEDS: Aspirin 81 MG Tab.EC PO SCH (08:04)
[2017-11-25] MEDS: Aspirin 81 MG Tab.EC PO SCH (07:51)
[2017-11-25] MEDS: Calcium Carbonate/Vitamin D3 1250 MG-200 Unit Tab PO SCH (07:51)
[2017-11-25] MEDS: Multivitamin, Stress Formula with Zinc Tab PO SCH (07:51)
[2017-11-25] MEDS: Magnesium Oxide 400 MG Tab PO SCH ×2 (07:51→20:39)
[2017-11-25] MEDS: GABAPENTIN 100 MG PO SCH ×3 (07:51→20:42)
[2017-11-25] MEDS: Acetaminophen 325 MG Tab PO SCH ×3 (07:51→20:40)
[2017-11-25] MEDS ORDERED: CLONAZEPAM PO PRN (09:09)
[2017-11-25 10:08] LABS: ANION GAP 13.5 mmol/L (10-20); CHLORIDE,CL 111 mmol/L (98-107); SODIUM,NA 146 mmol/L (136-145)
--- NOTE | 2017-11-25 10:34 | PN ---
Progress Note for JEOVANNY PATEL Date: 11/25/2017 Room #: VM.217 SUBJECTIVE: An 82-year-old on swing bed due to painful knee and back arthritis. She is awaiting move over to assisted living. She has been receiving Klonopin 1- 2 times per day. She did receive a 0.5 mg this morning. Prior to that, she was up and alert per nursing. Now, she is slightly somnolent. The right knee is not red or swollen. She is not short of breath. She denies any cough or chest pain. OBJECTIVE: Vital Signs: Her temperature is 98, pulse 58, blood pressure 132/66, respiratory rate 18, and O2 93% on room air. General: She is in no acute distress. Heart: Regular rate and rhythm. Lungs: Lung sounds are clear to auscultation bilaterally without crackles or wheezes. Abdomen: Positive bowel sounds. Soft and nontender. Extremities: Warm and dry. No edema. ASSESSMENT AND PLAN: 1. Right knee pain with osteoarthritis. Cortisone injection did not significantly improve her pain. She has done some work with PT. The plan is to get her over to assisted living with her spouse. 2. Generalized pain, likely fibromyalgia, improved on Neurontin. 3. Anxiety. She has been receiving Klonopin. We are going to decrease the dose to 0.25 mg b.i.d. p.r.n. 4. Degenerative disk disease of the spine. 5. History of anemia. 6. Elevated INR. 7. Moderate malnutrition. 8. Osteoporosis. 9. Asymptomatic bradycardia. The plan at this point, the patient will continue swing bed cares until a bed is arranged at assisted living. We are going to repeat her lab work today. MKA: 11/25/2017 09:12:07 MODL: 11/25/2017 10:26:04 /[id number]
[2017-11-26] MEDS: Acetaminophen 325 MG Tab PO SCH (07:47)
[2017-11-26] MEDS: Multivitamin, Stress Formula with Zinc Tab PO SCH (07:48)
[2017-11-26] MEDS: Aspirin 81 MG Tab.EC PO SCH (07:48)
[2017-11-26] MEDS: Calcium Carbonate/Vitamin D3 1250 MG-200 Unit Tab PO SCH (07:48)
[2017-11-26] MEDS: GABAPENTIN 100 MG PO SCH (07:48)
[2017-11-26] MEDS: Magnesium Oxide 400 MG Tab PO SCH (07:48)
--- NOTE | 2017-11-26 08:07 | DISCH ---
PRIMARY DISCHARGE DIAGNOSES: 1. Generalized pain, possibly fibromyalgia. 2. Right knee pain due to arthritis. 3. Back pain due to degenerative disk disease. 4. Generalized anxiety. 5. History of anemia, mild, with stable hemoglobin on discharge. 6. Elevated INR, improved with vitamin K and proper nutrition. 7. Moderate malnutrition. 8. Osteoporosis. 9. Asymptomatic bradycardia. REASON FOR ADMISSION: On the date of admission, this 82-year-old female was transferred from her observation stay, which started on 11/07 after numerous ER visits for weakness and pain. The patient did undergo a cortisone injection in the knee, which did not help her at all. She had no redness or swelling, just chronic arthritis changes. At that time, she was up in her room, but at other times, she was very dramatic, feeling like she could not do anything for herself. Therefore, she was resistant to going back home and arrangements were made for her and her to move into assisted living, which is taking place today. Lab work done at the time of discharge showed a white count 7.9, hemoglobin 11.4, platelets 176. Sodium 146, potassium 3.5, chloride 111, bicarb 25, BUN 11, creatinine 0.5, glucose 86, and calcium 8. The patient was initiated on Neurontin during her stay, which she tolerated. She also was receiving some doses of Klonopin 1 to 2 times a day 0.5, and she was quite sedated on the morning of discharge, but had been quite alert before Klonopin, so I decreased her dose further to 0.25 mg. In the past, she had been on Xanax and other medications for anxiety, but currently she was not taking any. She was not using any hydrocodone for her knee pain, just Tylenol. We had given her some NSAIDs initially, but withheld them due to some mild anemia and she continued on her regular aspirin, but denied any stomach pain. DISCHARGE PLANS AND INSTRUCTIONS: She will follow up with Eden Beltrán or myself in the clinic in 2 weeks' time. She will have a BMP, CBC, mag, and ferritin at that visit. She will also have Home Health. We will likely try to wean her off Klonopin. [id number] visit with myself occurred on 11/25/2017 for the purpose of Home Health. I will periodically review this plan of care. She needs Home Health for teaching and assessments due to impaired mobility with a right knee pain. She is also needing Nursing for monitoring of medications for her pain and anxiety and PT to work with her for mobility. Due to her impaired mobility, she is unable to leave her apartment without the assist of another person and it does require some taxing effort due to knee pain. Therefore, she is considered homebound. Vital signs and exam in her progress note from earlier today. MKA: 11/25/2017 14:35:44 MODL: 11/26/2017 02:20:02 /[id number]
== END 2017-11-26 10:25 | disposition home health service (06) | DRG 554 ==
LOC: UNDOADMIN 10:45 → VM.MS 10:45
PROVIDERS: ADMIT Family Medicine; ATTEND Internal Medicine
DX: M17.11 Unilateral primary osteoarthritis, right knee (principal); E44.0 Moderate protein-calorie malnutrition; M51.36 Other intervertebral disc degeneration, lumbar region; M79.7 Fibromyalgia; M81.0 Age-related osteoporosis without current pathological fracture; D52.9 Folate deficiency anemia, unspecified; F17.210 Nicotine dependence, cigarettes, uncomplicated; F41.9 Anxiety disorder, unspecified; R00.1 Bradycardia, unspecified; Z88.8 Allergy status to other drugs, medicaments and biological substances; Z79.899 Other long term (current) drug therapy; Z79.82 Long term (current) use of aspirin; Z85.3 Personal history of malignant neoplasm of breast; Z90.11 Acquired absence of right breast and nipple; Z74.09 Other reduced mobility
CPT/HCPCS: 36415; 80048; 85025; 97110-GP; 97116-GP; 97168-GO; 97530-GP; 97535-GO; A9270-GY

== ENCOUNTER 2017-12-19 17:46 | Emergency (ER) | payer MEDICARE, OTHER ==
--- NOTE | 2017-12-19 18:00 | EDM.PDOC ---
ED HPI GENERAL MEDICAL PROBLEM - General Chief Complaint: Lower Extremity Injury/Pain Stated Complaint: Fall; Left Hip Pain Time Seen by Provider: 12/19/17 17:53 Source of Information: Reports: Patient, EMS Notes Reviewed, RN, RN Notes Reviewed History Limitations: Reports: No Limitations - History of Present Illness INITIAL COMMENTS - FREE TEXT/NARRATIVE: Patient is brought to the ED at [facility] via EMS after she fell at home ( [place]). Patient apparently was trying to get to her walker when she fell and landed on her left hip. Patient was unable to get up. Patient denies hitting her head. Patient denies any LOC. She complains of severe left hip pain. She states she is not able to move the left leg. She denies any numbness, tingling, or paresthesia of the LLE. Onset: Today, Sudden Onset Date: 12/19/17 - Related Data Allergies Allergy/AdvReac Type Severity Reaction Status Date / Time lorazepam Allergy Edema Verified 12/19/17 18:06 mirtazapine Allergy Cannot Verified 12/19/17 18:06 Remember Home Meds: Home Meds Aspirin 81 mg PO DAILY 11/07/17 [History] Calcium Carbonate/Vitamin D3 [Calcium 500 + Vit D Caplet] 1 each PO DAILY [History] Magnesium Oxide 400 mg PO BID tablet 11/09/17 [Rx] Multivitamins with Zinc [Stress Formula with Zinc] 1 each PO DAILY 11/09/17 [ History] Acetaminophen [Tylenol] 325 mg PO Q4H PRN #30 tablet 11/25/17 [Rx] Acetaminophen [Tylenol] 650 mg PO TID #90 tablet 11/25/17 [Rx] Gabapentin. 200 mg PO TID #180 11/25/17 [Rx] Clonazepam. 0.25 mg PO BID PRN 12/19/17 [History] Past Medical History HEENT History: Reports: Cataract, Other (See Below) Other HEENT History: presbyopia Cardiovascular History: Reports: Other (See Below) Other Cardiovascular History: irregular heart rhythm. 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 Musculoskeletal History: Reports: Osteoporosis, Other (See Below) Other Musculoskeletal History: weakness Neurological History: Reports: None Psychiatric History: Reports: Anxiety Endocrine/Metabolic History: Reports: Other (See Below) Other Endocrine/Metabolic History: folate deficiency anemia Hematologic History: Reports: Other (See Below) Other Hematologic History: folate deficiency anemia Oncologic (Cancer) History: Reports: Breast Dermatologic History: Reports: None - Past Surgical History Head Surgeries/Procedures: Reports: None Respiratory Surgical History: Reports: None GI Surgical History: Reports: None Female Surgical History: Reports: Other (See Below) Other Female Surgeries/Procedures: Right breast removed 20 - 25 years ago. Endocrine Surgical History: Reports: None Neurological Surgical History: Reports: None Musculoskeletal Surgical History: Reports: None Oncologic Surgical History: Reports: Mastectomy Social & Family History - Family History Cardiac: Reports: High Cholesterol, Hypertension, [place] Neurological: Reports: CVA Endocrine/Metabolic: Reports: Diabetes, type II - Caffeine Use Caffeine Use: Reports: Coffee - Living Situation & Occupation Living situation: Reports: , with Significant Other Occupation: Retired Review of Systems - Review of Systems Review Of Systems: See Below Constitutional: Reports: Weakness. Denies: Chills, Fever Respiratory: Denies: Shortness of Breath, Cough Cardiovascular: Denies: Chest Pain, Palpitations GI/Abdominal: Denies: Abdominal Pain, Nausea, Vomiting Musculoskeletal: Reports: Leg Pain, Joint Pain Skin: Reports: No Symptoms Neurological: Reports: No Symptoms. Denies: Dizziness, Headache, Numbness, Paresthesia, Tingling ED EXAM, GENERAL - Physical Exam Exam: See Below Exam Limited By: No Limitations General Appearance: Alert, No Apparent Distress, Anxious Eye Exam: Bilateral Eye: Normal Inspection, PERRL Nose: Normal Inspection, No Blood Head: Atraumatic, Normocephalic Neck: Supple Respiratory/Chest: No Respiratory Distress, Lungs Clear, Normal Breath Sounds Cardiovascular: Normal Peripheral Pulses, Regular Rate, Rhythm Peripheral Pulses: 2+: Posterior Tibial (L), Posterior Tibial (R), Dorsalis Pedis (L), Dorsalis Pedis (R) GI/Abdominal: Normal Bowel Sounds, Soft, Non-Tender Back Exam: Normal Inspection Extremities: Joint Swelling, Leg Pain, Limited Range of Motion, Other (shorten and internal rotation of LLE) Neurological: Alert, Oriented Skin Exam: Warm, Dry, Intact, Normal Color Course - Vital Signs Last Recorded V/S: Last Vital Signs Temp 36.6 C 12/19/17 17:46 Pulse 68 12/19/17 17:46 Resp 18 12/19/17 17:46 BP 183/80 H 12/19/17 17:46 Pulse Ox 95 12/19/17 17:46 - Orders/Labs/Meds Orders: Active Orders 24 hr Category Date Time Status Hip Min 2V or 3V w Pelvis Lt [CR] Stat Exams 12/19/17 18:04 Taken BASIC METABOLIC PANEL,BMP [CHEM] Stat Lab 12/19/17 18:29 Received INR,PT,PROTHROMBIN TIME [COAG] Stat Lab 12/19/17 18:29 Received MAGNESIUM [CHEM] Stat Lab 12/19/17 18:29 Received Sodium Chloride 0.9% [Normal Saline] 500 ml Med 12/19/17 19:00 Active IV ASDIRECTED Medication Orders Sodium Chloride (Normal Saline) 500 mls @ 100 mls/hr IV ASDIRECTED ECTOR Labs: Laboratory Tests 12/19/17 Range/Units 18:29 WBC 7.8 (4.0-10.0) x10^3/uL RBC 3.67 L (4.00-5.50) x10^6/uL Hgb 11.0 L (12.0-16.0) g/dL Hct 32.7 L (33.0-47.0) % MCV 89.1 (78.0-93.0) fL MCH 30.0 (26.0-32.0) pg MCHC 33.6 (32.0-36.0) g/dL RDW Coeff of Edinson 18.4 H (10.0-15.0) % Plt Count 166 (130-400) x10^3/uL Neut % (Auto) 66.2 (50.0-80.0) % Lymph % (Auto) 22.4 L (25.0-50.0) % Dubois % (Auto) 9.9 (2.0-11.0) % Eos % (Auto) 1.4 (0.0-4.0) % Baso % (Auto) 0.1 L (0.2-1.2) % Meds: Medications Generic Name Dose Route Start Last Admin Trade Name Freq PRN Reason Stop Dose Admin Sodium Chloride 500 mls @ 100 mls/hr 12/19/17 19:00 Normal Saline IV ASDIRECTED ECTOR Discontinued Medications Generic Name Dose Route Start Last Admin Trade Name Delbert PRN Reason Stop Dose Admin Morphine Sulfate 2 mg 12/19/17 18:45 Morphine IVPUSH 12/19/17 18:46 ONETIME ONE - Radiology Interpretation Free Text/Narrative:: Pelvis 1V 2V Left Hip: There is an intratrochanteric fracture of the left hip with varus attenuation See scanned report in EMR Departure - Departure Time of Disposition: 18:52 Disposition: DC/Tfer to Acute Hospital 02 Condition: Good Clinical Impression: Hip fracture Qualifiers: Encounter type: initial encounter Fracture type: closed Laterality: left Qualified Code(s): S72.002A - Fracture of unspecified part of neck of left femur , initial encounter for closed fracture - Discharge Information *PRESCRIPTION DRUG MONITORING PROGRAM REVIEWED*: Not Applicable *COPY OF PRESCRIPTION DRUG MONITORING REPORT IN PATIENT ROLAND: Not Applicable Forms: Interfacility Transfer [facility] ED Communication - ED Communication Date/Time Date: 12/19/17 Time Called: 18:45 - Discussed Case With (1) Discussed Case With (1): Admitting Provider (Dr. Muñoz, hospitalist) - Conversation Summary Admitting Provider Agreed to Patient's Admission: Yes Patient Aware of Amendments fo Care Plan: Yes - Problem List Review Problem List Initiated/Reviewed/Updated: Yes - My Orders Last 24 Hours: My Active Orders 12/19/17 18:04 Hip Min 2V or 3V w Pelvis Lt [CR] Stat 12/19/17 18:29 BASIC METABOLIC PANEL,BMP [CHEM] Stat INR,PT,PROTHROMBIN TIME [COAG] Stat MAGNESIUM [CHEM] Stat 12/19/17 19:00 Sodium Chloride 0.9% [Normal Saline] 500 ml IV ASDIRECTED - Assessment/Plan Last 24 Hours: My Active Orders 12/19/17 18:04 Hip Min 2V or 3V w Pelvis Lt [CR] Stat 12/19/17 18:29 BASIC METABOLIC PANEL,BMP [CHEM] Stat INR,PT,PROTHROMBIN TIME [COAG] Stat MAGNESIUM [CHEM] Stat 12/19/17 19:00 Sodium Chloride 0.9% [Normal Saline] 500 ml IV ASDIRECTED Assessment:: Left hip fracture Plan: Case discussed with Dr. Muñoz. Patient accepted in transfer. Patient will be sent to [facility] via ALS ground. Patient and family aware and agree with transfer.
[2017-12-19] MEDS ORDERED: Morphine 2 MG/ML Syringe IVPUSH ONE (18:45)
[2017-12-19 18:50] LABS: CHLORIDE,CL 109 mmol/L (98-107); SODIUM,NA 141 mmol/L (136-145)
[2017-12-19 18:51] LABS: ANION GAP 10.9 mmol/L (10-20)
[2017-12-19] MEDS ORDERED: Sodium Chloride 0.9% 500 ML IV SCH (19:00)
== END 2017-12-19 19:58 | disposition short-term general hospital (02) ==
LOC: VM.ED 17:46
DX: S72.092A Other fracture of head and neck of left femur, initial encounter for closed fracture (principal); E78.00 Pure hypercholesterolemia, unspecified; Z88.8 Allergy status to other drugs, medicaments and biological substances; Z88.5 Allergy status to narcotic agent; W18.30XA Fall on same level, unspecified, initial encounter; Z79.899 Other long term (current) drug therapy; Z79.82 Long term (current) use of aspirin; Y92.009 Unspecified place in unspecified non-institutional (private) residence as the place of occurrence of the external cause
CPT/HCPCS: 36415; 73502; 80048; 83735; 85025; 85610; 96361; 96374; 99285; J2270; J7040

== ENCOUNTER 2018-12-12 11:13 | Inpatient (IN) | payer MEDICARE, OTHER ==
[2018-12-12] MEDS: cefTRIAXone 1 GM Vial IVPUSH SCH (12:00)
--- NOTE | 2018-12-12 12:01 | EDM.PDOC ---
ED HPI GENERAL MEDICAL PROBLEM - General Chief Complaint: Fever Stated Complaint: ER Time Seen by Provider: 12/12/18 11:25 Source of Information: Reports: EMS, EMS Notes Reviewed, Family History Limitations: Reports: Altered Mental Status - History of Present Illness INITIAL COMMENTS - FREE TEXT/NARRATIVE: Per EMS notes and primary care provider patient at palliative care snf her noted fever labs that were drawn yesterday with a white count of approximately 20,000 primary care provider's possibly concerned along with family of aspiration pneumonia/sepsis patient was sent here to the hospital for evaluation. Patient is alert and somewhat verbal but is confused intermittently babbling garbled speech but this is apparently the baseline of the patient Onset: Other (Yesterday patient had a noticed elevated white blood cell ) Improves with: Reports: None Associated Symptoms: Reports: Fever/Chills, Shortness of Breath (Per EMS/ snf patient had been placed on oxygen at 2 L nasal cannula yesterday due to her sats in the mid 90s but no respiratory distress was noted). Denies: Nausea/Vomiting, Rash Treatments LAY OUT MAKER: Denies: Acetaminophen, Aspirin, NSAIDS - Related Data Allergies Allergy/AdvReac Type Severity Reaction Status Date / Time lorazepam Allergy Edema Verified 12/12/18 12:30 mirtazapine Allergy Cannot Verified 12/12/18 12:30 Remember Home Meds: Home Meds Magnesium Oxide 400 mg PO BID tablet 11/09/17 [Rx] Multivitamins with Zinc [Stress Formula with Zinc] 1 each PO DAILY 11/09/17 [ History] Gabapentin. 200 mg PO TID #180 11/25/17 [Rx] Acetaminophen [Tylenol] 650 mg PO Q4H PRN 02/26/18 [History] Cholecalciferol (Vitamin D3) [Vitamin D3] 2,000 unit PO DAILY 02/26/18 [History] Polyethylene Glycol 3350 [MiraLAX] 17 gm PO DAILY 02/26/18 [History] amLODIPine Besylate [Norvasc] 5 mg PO DAILY 02/26/18 [History] Aspirin [Halfprin] 81 mg PO DAILY 12/12/18 [History] Calcium Carbonate [Calcium] 1,000 mg PO BID 12/12/18 [History] Cyanocobalamin (Vitamin B-12) [B-12] 1,000 mcg PO DAILY 12/12/18 [History] DULoxetine [Cymbalta] 60 mg PO DAILY 12/12/18 [History] Dronabinol [Marinol] 2.5 mg PO BIDAC 12/12/18 [History] Potassium Chloride [Klor-Con M20] 20 meq PO BID 12/12/18 [History] Sennosides [Senna] 8.6 mg PO Q48H 12/12/18 [History] guaiFENesin [Mucinex] 600 mg PO BID PRN 12/12/18 [History] traMADol [Ultram] 50 mg PO DAILY 12/12/18 [History] Past Medical History HEENT History: Reports: Cataract, Other (See Below) Other HEENT History: presbyopia Cardiovascular History: Reports: Other (See Below) Other Cardiovascular History: irregular heart rhythm. peripheral edema Respiratory History: Reports: None Gastrointestinal History: Reports: Other (See Below) Other Gastrointestinal History: abnormal results of liver function study Genitourinary History: Reports: None CLINICAL DIRECTOR History: Reports: None Musculoskeletal History: Reports: Osteoporosis, Other (See Below) Other Musculoskeletal History: weakness Neurological History: Reports: None Psychiatric History: Reports: Anxiety Endocrine/Metabolic History: Reports: Other (See Below) Other Endocrine/Metabolic History: folate deficiency anemia Hematologic History: Reports: Other (See Below) Other Hematologic History: folate deficiency anemia Oncologic (Cancer) History: Reports: Breast Dermatologic History: Reports: None - Past Surgical History Head Surgeries/Procedures: Reports: None Respiratory Surgical History: Reports: None GI Surgical History: Reports: None Female Surgical History: Reports: Other (See Below) Other Female Surgeries/Procedures: Right breast removed 20 - 25 years ago. Endocrine Surgical History: Reports: None Neurological Surgical History: Reports: None Musculoskeletal Surgical History: Reports: None, Other (See Below) Other Musculoskeletal Surgeries/Procedures:: left hip surgery in december Oncologic Surgical History: Reports: Mastectomy Social & Family History - Family History Cardiac: Reports: High Cholesterol, Hypertension, [place] Neurological: Reports: CVA Endocrine/Metabolic: Reports: Diabetes, type II - Caffeine Use Caffeine Use: Reports: Coffee - Living Situation & Occupation Living situation: Reports: , with Significant Other Occupation: Retired ED ROS GENERAL - Review of Systems Review Of Systems: See Below Constitutional: Reports: Fever. Denies: Weakness HEENT: Reports: No Symptoms Respiratory: Reports: Shortness of Breath, Cough, Sputum Cardiovascular: Denies: Chest Pain, Blood Pressure Problem, Edema Endocrine: Reports: No Symptoms GI/Abdominal: Reports: No Symptoms : Reports: No Symptoms Musculoskeletal: Reports: No Symptoms Skin: Reports: No Symptoms Neurological: Reports: No Symptoms Hematologic/Lymphatic: Reports: No Symptoms. Denies: Anemia, Easy Bleeding, Easy Bruising ED EXAM, SEPSIS - Physical Exam Exam: See Below Exam Limited By: Language Barrier General Appearance: Alert, No Apparent Distress, Thin, Other (Patient is elderly thin white female respiratory rate noted 36 O2 sat 92 but she is off her oxygen she has no accessory muscle usage and no sign symptoms respiratory distress she is tachycardic to 114 at this time ablution meet sepsis criteria due to tachycardia and a fever of 100.3 and a white count yesterday of 20,000). No: WD/WN Eye Exam: Bilateral Eye: PERRL Ears: Normal External Exam Nose: Normal Inspection, Normal Mucosa Throat/Mouth: Normal Lips, Normal Gums, Normal Voice, No Airway Compromise, Other (Patient has dry mucous membranes fissuring of the tongue) Head: Atraumatic, Normocephalic Neck: Normal Inspection, Supple, Non-Tender, Full Range of Motion, Other (No nuchal rigidity) Respiratory/Chest: No Respiratory Distress, Rhonchi. No: Lungs Clear, No Accessory Muscle Use, Respiratory Distress, Wheezing, Accessory Muscle Use, Retractions Cardiovascular: Normal Peripheral Pulses, Regular Rate, Rhythm, Other ( Tachycardia noted) GI/Abdominal Exam: Normal Bowel Sounds, Soft, Non-Tender, No Organomegaly, No Distention. No: Guarding, Rigid, Rebound, Tender, Abnormal Bowel Sounds Back: Normal Inspection, Other (No noted rashes to the back or abdominal or chest Patient's upper extremity is held in a flexed position lower extremities were graded at 2/5 with movement will not follow commands to lift legs up) Extremities: Non-Tender, No Pedal Edema, Normal Capillary Refill, Other (Patient 's upper extremity is held in a flexed position lower extremities were graded at 2/5 with movement will not follow commands to lift legs up) Neurological: Alert. No: Oriented, CN II-XII Intact Skin: Warm, Dry, Intact, Normal Color, No Rash Lymphatic: Bilateral: No Adenopathy Course - Vital Signs Text/Narrative:: Sepsis protocol was followed CBC BMP UA chest x-ray and blood cultures 2 Rocephin 1 g IV was started prophylactically at approximately 11:30 Patient has a potassium 6.1 white count 21.6 with a 7% bandemia Spoke with the primary care provider Justa she agrees with the patient being admitted and hold aggressive treatment of potassium at this time she is willing to speak with patient's family about possible hospice care she is in agreement with treating prophylactic white count for possible aspiration pneumonia Last Recorded V/S: Last Vital Signs Temp 37.9 C 12/12/18 11:15 Pulse 114 H 12/12/18 11:15 Resp 16 12/12/18 11:15 BP 116/74 12/12/18 11:15 Pulse Ox 95 12/12/18 11:15 - Orders/Labs/Meds Orders: Active Orders 24 hr Category Date Time Status CULTURE BLOOD [BC] Stat Lab 12/12/18 11:42 Received CULTURE BLOOD [BC] Stat Lab 12/12/18 11:55 Received [email or web address] [Rocephin] Med 12/12/18 12:00 Active 1 gm IVPUSH DAILY Blood Culture x2 Reflex Set [OM.PC] Stat Oth 12/12/18 11:33 Ordered Medication Orders Ceftriaxone Sodium (Rocephin) 1 gm IVPUSH DAILY ECTOR Last Admin: 12/12/18 12:00 Dose: 1 gm Labs: Laboratory Tests 12/12/18 12/12/18 12/12/18 Range/Units 11:42 11:42 11:42 WBC 21.6 H* (4.0-10.0) x10^3/uL RBC 3.53 L (4.00-5.50) x10^6/uL Hgb 10.1 L (12.0-16.0) g/dL Hct 30.1 L (33.0-47.0) % MCV 85.3 D (78.0-93.0) fL MCH 28.6 (26.0-32.0) pg MCHC 33.6 (32.0-36.0) g/dL RDW Coeff of Edinson 14.9 (10.0-15.0) % Plt Count 616 H D (130-400) x10^3/uL Add Manual Diff Yes Neutrophils % (Manual) 90 H (50-80) % Band Neutrophils % 7 H (0-6) % Lymphocytes % (Manual) 2 L (25-50) % Monocytes % (Manual) 1 L (2-11) % Platelet Estimate Decreased L Hypochromasia 1+ slight H Sodium 141 (136-145) mmol/L Potassium 6.1 H* D (3.5-5.1) mmol/L Chloride 106 (98-107) mmol/L Carbon Dioxide 29 (21-32) mmol/L Anion Gap 12.1 (10-20) mmol/L BUN 21 H (7-18) mg/dL Creatinine 0.7 (0.55-1.02) mg/dL Est Cr Clr Drug Dosing TNP Estimated GFR (MDRD) > 60 Glucose 108 H (74-106) mg/dL Lactic Acid 1.7 (0.4-2.0) mmol/L Calcium 8.1 L (8.5-10.1) mg/dL Meds: Medications Generic Name Dose Route Start Last Admin Trade Name Freq PRN Reason Stop Dose Admin Ceftriaxone Sodium 1 gm 12/12/18 12:00 12/12/18 12:00 Rocephin IVPUSH 1 gm DAILY ECTOR Administration Discontinued Medications Generic Name Dose Route Start Last Admin Trade Name Freq PRN Reason Stop Dose Admin Ceftriaxone Sodium 1 gm 12/13/18 08:00 Rocephin IVPUSH DAILY ECTOR Departure - Departure Time of Disposition: 12:40 Disposition: Admitted As Inpatient 66 Condition: Poor Clinical Impression: Dehydration, Sepsis, Hyperkalemia - Discharge Information *PRESCRIPTION DRUG MONITORING PROGRAM REVIEWED*: No *COPY OF PRESCRIPTION DRUG MONITORING REPORT IN PATIENT ROLAND: No Referrals: Eden Hodge PA-C [Primary Care Provider] - Forms: ED Department Discharge - Problem List & Annotations (1) Sepsis SNOMED Code(s): 39175413 Code(s): A41.9 - SEPSIS, UNSPECIFIED ORGANISM Status: Acute Current Visit : Yes (2) Hyperkalemia SNOMED Code(s): 13745174 Code(s): E87.5 - HYPERKALEMIA Status: Acute Current Visit: Yes (3) Dehydration SNOMED Code(s): 93976315 Code(s): E86.0 - DEHYDRATION Status: Acute Current Visit: Yes - My Orders Last 24 Hours: My Active Orders 12/12/18 11:33 Blood Culture x2 Reflex Set [OM.PC] Stat 12/12/18 11:42 CULTURE BLOOD [BC] Stat 12/12/18 11:55 CULTURE BLOOD [BC] Stat 12/12/18 12:00 cefTRIAXone [Rocephin] 1 gm IVPUSH DAILY - Assessment/Plan Last 24 Hours: My Active Orders 12/12/18 11:33 Blood Culture x2 Reflex Set [OM.PC] Stat 12/12/18 11:42 CULTURE BLOOD [BC] Stat 12/12/18 11:55 CULTURE BLOOD [BC] Stat 12/12/18 12:00 cefTRIAXone [Rocephin] 1 gm IVPUSH DAILY
[2018-12-12 12:04] LABS: CHLORIDE,CL 106 mmol/L (98-107); SODIUM,NA 141 mmol/L (136-145)
[2018-12-12 12:18] LABS: ANION GAP 12.1 mmol/L (10-20)
--- NOTE | 2018-12-12 12:23 | CR ---
[id number] RAD/RAD Chest PA or AP 1V EXAM: FRONTAL CHEST INDICATION: FEVER. COMPARISON: None. DISCUSSION: Moderate right and small left pleural effusion. There is bibasilar atelectasis which could obscure infiltrates. The heart is at upper limits of normal for size with borderline central vascular congestion. Mild right apical pleural thickening. IMPRESSION: 1. Moderate right and small left pleural effusions with associated basilar atelectasis. These changes could obscure infiltrates or other underlying pathology. 2. Cardiomegaly with borderline central vascular congestion. Vinh Motta MD 12/12/18 [id number] Thank you for allowing us to participate in the care of your patient.
[2018-12-12] MEDS ORDERED: Acetaminophen 325 MG Tab PO PRN (13:58)
[2018-12-12] MEDS ORDERED: Sennosides 8.6 MG Tab PO SCH (14:00)
[2018-12-12] MEDS: Sodium Chloride 0.9% 1,000 ML IV SCH ×2 (14:36→19:47)
[2018-12-12] MEDS: Azithromycin 500 MG in Sodium Chloride 0.9% 250 ML IV SCH (17:34)
--- NOTE | 2018-12-12 21:18 | HP ---
CHIEF COMPLAINT: Respiratory distress and abnormal laboratories. HISTORY OF PRESENT ILLNESS: This is an 83-year-old female who normally lives at [facility] since she had a hip fracture, who comes in after having some low-grade fevers off and on during the week. Staff reported she was actually better and went out to a picnic Saturday, but this morning she was just "off." She had had laboratory work on Saturday due to these low-grade fever showing a UA to be normal. Potassium came back severely low at 2.4. Her hemoglobin also came back low at 8.8, which was a new change. However, I did not get the results until today when her hemoglobin was 11.4 last fall and her white count was 20,000. The patient received 4 doses of the 60 mEq of potassium but none this morning and comes into the ER with potassium of 6.1. She [facility] 92% [facility] 3 L [facility]. She was tachycardic at 114 on arrival, temperature was 100.3. She was quite pale, answering questions yes or no but would fall asleep easily. Initially, they had contacted me from [facility] and stated that her daughter wanted her to be seen. Therefore, I recommended transfer to the emergency room. The patient is not on hospice but has been on palliative care due to significant weight decline. In fact, her weight today is up 4 pounds from a month ago. ALLERGIES: Her allergies include lorazepam and mirtazapine. MEDICATIONS: Her medication list is reviewed from [facility] and includes Marinol 2.5 mg twice daily, had been potassium 60 mEq twice daily for 4 doses, Neurontin 200 three times a day, tramadol every morning, Cymbalta 60 mg daily, MiraLAX, Tums, calcium, vitamin D, Norvasc 5 mg daily, aspirin, multivitamin, and magnesium. PAST MEDICAL HISTORY: Includes osteoporosis with previous hip fractures; generalized anxiety disorder, she previously took benzodiazepines; essential hypertension; history of vitamin deficiency anemia with folate and B12; remote history of breast cancer; irregular heartbeats with PACs and PVCs; major depressive disorder, recurrent; and severe protein-calorie malnutrition. PAST SURGICAL HISTORY: The patient has had a mastectomy for cancer, left IM nailing of the hip, right surgical fixation of a subtrochanteric fracture in 2018, and then a right IM nailing of that right hip in March 2018. SOCIAL HISTORY: The patient is . Both her and her partner live at [facility]. She has 4 children, 1 was murdered and 1 of lymphoma. Another son reported in [place] who I have not spoken to but a daughter, Cee, in [place] who I have talked to on several occasions. Her cell is [phone]. She is a nonsmoker. FAMILY HISTORY: Both parents are . Mother had a stroke and hypertension. Father had a heart attack and hypertension. REVIEW OF SYSTEMS: General: Actually has had a slight weight gain. She has been quite fatigued. Otherwise, review of systems not specifically obtainable from her other than brief yes or no answers and her current health status. She is not alert enough but did report no chest pain, no abdominal pain, and no cough. PHYSICAL EXAMINATION: Vital Signs: On admission to the hospital weight 35.3 kg, temperature 100.3, pulse 114, blood pressure 114/68, respiratory rate 36, and O2 of 96 on 2 L. General: She is in no acute distress, but she is extremely pale. HEENT: Her pupils are equal, round, and reactive to light. She can only keep her eyes open briefly before drifting off to sleep. She does answer questions with yes or no. Heart: Regular rate and rhythm. S1, S2 without murmur but with tachycardia. Lungs: Lung sounds are decreased especially over the right base. No crackles or wheezes appreciated. Abdomen: Nondistended. Positive bowel sounds. Nontender. EXTREMITIES: Warm and dry but quite thin. Her skin is very frail. Especially on her arms, she has a bruise noted to the right wrist area already from an IV start. LABORATORY WORK: Did show white count of 21.6 with 90% neutrophils and 7% bands, hemoglobin 10.1, and platelets 616. Sodium 141, potassium 6.1, chloride 106, bicarbonate 29, BUN 21, creatinine 0.7, glucose 108, lactic 1.7, and calcium 8.2. Chest x-ray does show a large right-sided pleural effusion, smaller on the left. This could easily obscure any infiltrates. ASSESSMENT: 1. Pneumonia. There was some report of a possible aspiration. However, I discussed with the [facility] nurse, and they did not confirm this. At this point, we will treat like a community-acquired pneumonia. She has not recently been in the hospital. She has gotten intravenous Rocephin already through the emergency room, and I will start her on oral Zithromax. 2. Hyperkalemia, which is iatrogenic due to over replaced potassium on my part due to hypokalemia with etiology unclear but possibly due to poor oral intake. There has been no reports of diarrhea. At this point, we will just let the potassium drift down. She did not get a dose today. I think the intravenous fluids should help, and we will repeat tomorrow. 3. Severe malnutrition. We will encourage a diet. 4. Sepsis due to pneumonia. Blood cultures have been sent. We will attempt sputum cultures. 5. Dehydration with normal renal function. We will give her intravenous fluids 125 an hour. She has no history of congestive heart failure. We will monitor her closely. 6. Constipation by history. We will continue her stool softeners. 7. Essential hypertension. We will continue Norvasc. 8. Anxiety and depression. We will continue the Cymbalta. 9. Chronic pain due to previous hip fractures. She is on tramadol daily. We will hold that if she gets overly sedated. PLAN: At this point, the patient is admitted for acute cares and IV fluids and lab monitoring. Discussed with her daughter in detail. She is currently on comfort level status, would not transfer to a higher level of care. Even considerations are being made for hospice on her return. For DVT prophylaxis because I am not sure if she is having any bleeding with this anemia, I will hold off on any DVT prophylaxis with Lovenox but place her on SCDs. She did have a hemoglobin down to 8.8 in the clinic 2 days ago. Now it is up over 10, but I suspect that is due to dehydration. We will repeat another hemoglobin tomorrow. Dr. Oconnor to cover over the weekend. Anticipate the patient will be here at least 2 nights. SUNITA: 12/12/2018 14:08:09 MODL: 12/12/2018 21:12:06 /[id number]
[2018-12-13] MEDS: Sodium Chloride 0.9% 1,000 ML IV SCH ×3 (02:39→20:26)
[2018-12-13] MEDS: cefTRIAXone 1 GM Vial IVPUSH SCH (07:59)
[2018-12-13 08:00] LABS: CHLORIDE,CL 109 mmol/L (98-107); SODIUM,NA 144 mmol/L (136-145)
[2018-12-13] MEDS: amLODIPine 5 MG Tab PO SCH (08:00)
[2018-12-13] MEDS ORDERED: cefTRIAXone 1 GM Vial IVPUSH SCH (08:00)
[2018-12-13] MEDS: traMADol 50 MG Tab PO SCH (08:00)
[2018-12-13] MEDS: Polyethylene Glycol 3350 Powder 17 GM Packet PO SCH (08:00)
[2018-12-13] MEDS: DULoxetine 60 MG Cap PO SCH (08:00)
[2018-12-13 08:04] LABS: ANION GAP 15.5 mmol/L (10-20)
--- NOTE | 2018-12-13 09:49 | CR ---
[id number] RAD/RAD Chest PA or AP 1V EXAM: RAD Chest PA or AP 1V INDICATION: PNEUMONIA. COMPARISON: December 12, 2018. DISCUSSION: Cardiomediastinal silhouette is stable in size and contour. Moderate right and small left pleural effusions. These are likely not changed compared to the prior. Increased opacification over The right hemithorax is likely related to positioning. IMPRESSION: Moderate small left pleural effusions. Underlying infiltrate is not excluded especially on the right. Kale Carrasco DO 12/13/18 0948 Thank you for allowing us to participate in the care of your patient.
--- NOTE | 2018-12-13 10:32 | PCM.SN ---
- Free Text/Narrative Note: Coverage for December 13 S: Patient is unable to make any intelligible comments. She appears to be resting quietly when undisturbed and makes a word on occasion. She does not appear to recognize me Oh. Blood pressure 173/97 heart rate 136 temp 100.4 O2 sat 93 Lungs: No breath sounds in the right, clear on the left. Patient does have a cough occasionally but is too weak to bring up any sputum Cor: S1-S2 normal without rubs, murmurs, gallop Abdomen: Bowel sounds active: Soft nontender Extremities: No edema, no tenderness that I could feel on palpation but on moving the left leg she does grimace some; the left first and second toe are somewhat erythematous but there is no pus or skin breakdown Skin: Extensive bruising on her arms from IV in blood drawing. IV site looks clear, sacral skin is thin but intact, somewhat red Labs: Chest x-ray repeated showed increased effusion on the right side which was already quite large yesterday covering about two thirds of the hemithorax White count 22,200 Hemoglobin 9.0 Platelets 562,000 Sodium 144, potassium 4.5, CO2 21, chloride 109, BMI 19, creatinine Intake IV yesterday 2869 in and patient was incontinent twice. She is not taking anything by mouth Present meds: Rocephin 1 g IV every 24 and azithromycin 250 IV every 24 . Patient is not taking her oral medications, including Miralax, tramadol, Norvasc , SSRI Assessment: Patient is septic with likely source in her right lung. She coughs but very weakly, it is possible that she has an aspiration pneumonia. I've spoken with her daughter in [place] Re: Anne's worsening condition. With the increasing effusion, more aggressive treatment would involve transferring her to [facility] for thoracentesis. Daughter did not think that her mother would want any of this extra treatment. I will try to add Flagyl , try to prevent decubitus and try to keep her comfortable. Her daughter will notify other members of the family.
[2018-12-13] MEDS ORDERED: metroNIDAZOLE/Normal Saline 250 MG in Premix Bag 1 BAG IV SCH (14:00)
[2018-12-13] MEDS: metroNIDAZOLE/Normal Saline 250 MG in Premix Bag 1 BAG IV SCH ×2 (14:32→20:28)
[2018-12-13] MEDS: Azithromycin 500 MG in Sodium Chloride 0.9% 250 ML IV SCH (17:10)
[2018-12-14] MEDS: metroNIDAZOLE/Normal Saline 250 MG in Premix Bag 1 BAG IV SCH ×4 (01:46→19:40)
[2018-12-14] MEDS: Polyethylene Glycol 3350 Powder 17 GM Packet PO SCH (07:40)
[2018-12-14] MEDS: amLODIPine 5 MG Tab PO SCH (07:40)
[2018-12-14] MEDS: DULoxetine 60 MG Cap PO SCH (07:40)
[2018-12-14] MEDS: cefTRIAXone 1 GM Vial IVPUSH SCH (07:44)
[2018-12-14] MEDS: traMADol 50 MG Tab PO SCH (07:51)
--- NOTE | 2018-12-14 10:02 | PCM.SN ---
- Free Text/Narrative Note: Coverage note December 14 S: Patient is more awake this morning, she is smiling and appears maybe to be recognizing me, she is trying to make a sentence. According to nurse she was able to recognize her and daughter yesterday afternoon. She shakes her head no when asked if she is in pain Objective: Patient is afebrile for the last 24 hours, pulse is 102, blood pressure 158/78, respiratory rate 26, O2 sat 93% on 2 L Lungs: I'm able to get some breath sounds in the upper third of the right lung field, left is clear Cor: S1-S2 normal without rubs, murmurs, gallops Abdomen" soft and nontender Extremities: Toes on the left foot are less red In: 2836 IV and patient was able to take 100 mL of fluid in without choking according to the nurse, she voided 5 incontinent Lab: MRSA screen is negative, blood cultures negative 2 at 24 hours in UA showed just old to 5 WBCs yesterday Impression: Patient is more alert, she is less tachycardic, hypertensive suggesting she is improving. She is however getting more hypoxic and a suspect this is from the increasing effusion Plan: Continue with the azithromycin, Rocephin and Flagyl, check CBC, lytes and BNP in the morning. Her daughter in [place] was informed of progress
[2018-12-14] MEDS: Sodium Chloride 0.9% 1,000 ML IV SCH ×2 (11:25→22:06)
[2018-12-14] MEDS: Azithromycin 500 MG in Sodium Chloride 0.9% 250 ML IV SCH (16:21)
[2018-12-15] MEDS: metroNIDAZOLE/Normal Saline 250 MG in Premix Bag 1 BAG IV SCH ×2 (01:46→08:02)
[2018-12-15 07:03] LABS: CHLORIDE,CL 107 mmol/L (98-107); SODIUM,NA 143 mmol/L (136-145)
[2018-12-15 07:06] LABS: ANION GAP 10.4 mmol/L (10-20)
[2018-12-15] MEDS ORDERED: Potassium Chloride 20 MEQ Tab.ER PO ONE (07:47)
[2018-12-15] MEDS: cefTRIAXone 1 GM Vial IVPUSH SCH (08:00)
[2018-12-15] MEDS: DULoxetine 60 MG Cap PO SCH (08:01)
[2018-12-15] MEDS: amLODIPine 5 MG Tab PO SCH (08:01)
[2018-12-15] MEDS: Polyethylene Glycol 3350 Powder 17 GM Packet PO SCH (08:02)
[2018-12-15] MEDS: traMADol 50 MG Tab PO SCH (08:02)
[2018-12-15] MEDS ORDERED: Spironolactone 25 MG Tab PO ONE (08:20)
[2018-12-15] MEDS ORDERED: Amoxicillin/Clavulanate K 600-42.9 MG/5 ML Susp 125 ML Bottle PO SCH (08:23)
[2018-12-15] MEDS ORDERED: Enoxaparin 30 MG/0.3 ML Syringe SUBCUT ONE (08:37)
--- NOTE | 2018-12-15 09:58 | PN ---
Progress Note for JEOVANNY PATEL Date: 12/15/2018 Room #: VM.215 SUBJECTIVE: This is hospital day #4 on an 83-year-old admitted with pneumonia. She has a large right pleural effusion. She has been on IV fluids due to sepsis. Effusion seems to be getting worse and she is requiring oxygen at least 2 to 3 L to keep her saturations above 90%. ProBNP is elevated to 940 today; however, her potassium is quite low at 2.4, she came in with hyperkalemia. She has been afebrile now greater than 24 hours. Flagyl was added over the weekend. She refused her pills yesterday except her pain pill. Blood pressure has been significantly elevated. She denies any headaches. She did recognize me as Justa, but she was surprised to find out she was in the hospital. She denies any cough or stomach pain. No diarrhea. OBJECTIVE: Vital Signs: Her temperature is 96.9, pulse 87, blood pressure 179/75, respiratory rate 26, and O2 of 94% on 3 L. General: She is in no acute distress. Heart: Regular rate and rhythm with occasional extra beats. Lungs: Lung sounds decreased over half of that right lung edgar, no crackles or wheezes; left lung, slightly decreased just in the base, no crackles, no wheezes. Abdomen: Nondistended. Positive bowel sounds. Nontender. Extremities: Warm and dry. No edema. Neurologic: She is quite thin and frail, but alert and answering questions appropriately. LABORATORY DATA: Lab work from today does show her white count to have improved to 19.5, hemoglobin down to 8.4, platelets at 396. Sodium 143, potassium 2.4, chloride 107, bicarb 28, BUN 13, creatinine 0.5, calcium 7.4. Blood cultures have been negative. No sputum culture has been able to be obtained. ASSESSMENT: 1. Pneumonia, likely due to aspiration. She is taking pills now. She has been afebrile. We will stop her IV antibiotics, just received her last dose of Flagyl this morning and start her on Augmentin this evening. 2. Sepsis due to pneumonia. This has resolved. We will stop IV fluids. 3. Large right-sided pleural effusion, could be related to pneumonia versus some congestive heart failure, although she has no history of that. We will give her a dose of Aldactone today and wean her off oxygen as able. 4. Hypokalemia. We will replace orally. Repeat tomorrow. 5. Severe malnutrition. 6. Reported to be coughing some while taking her pills. She has had some poor oral intake since she has been here. We will get Speech involved for an evaluation today. 7. Essential hypertension, uncontrolled, likely due to not getting her medications yesterday. These have been restarted. 8. Anxiety and depression, on Cymbalta. 9. Constipation. She has been refusing her MiraLax. 10.Chronic pain due to previous hip fracture. She has tramadol available. 11.Anemia, stable. We will continue to monitor. No acute signs of bleeding. PLAN: At this point, the patient is admitted to continue on acute cares. We will replace potassium orally aggressively, repeat tomorrow. I am going to start her on low dose 30 mg of Lovenox for DVT prophylaxis. Stop IV fluids and monitor respiratory status closely. I anticipate she will be able to go hopefully home to the [facility] tomorrow. SUNITA: 12/15/2018 08:37:40 MODL: 12/15/2018 09:10:45 /[id number]
[2018-12-15] MEDS: Potassium Chloride 20 MEQ Packet PO SCH (16:59)
[2018-12-15] MEDS: Amoxicillin/Clavulanate K 400-57 MG/5 ML Susp 100 ML Bottle PO SCH (20:07)
[2018-12-16 07:06] LABS: ANION GAP 12.4 mmol/L (10-20); CHLORIDE,CL 105 mmol/L (98-107); SODIUM,NA 141 mmol/L (136-145)
[2018-12-16] MEDS: traMADol 50 MG Tab PO SCH (07:29)
[2018-12-16] MEDS: DULoxetine 60 MG Cap PO SCH (07:29)
[2018-12-16] MEDS: Potassium Chloride 20 MEQ Packet PO SCH (07:30)
[2018-12-16] MEDS: Amoxicillin/Clavulanate K 400-57 MG/5 ML Susp 100 ML Bottle PO SCH (07:30)
[2018-12-16] MEDS: Polyethylene Glycol 3350 Powder 17 GM Packet PO SCH (07:31)
[2018-12-16] MEDS: amLODIPine 5 MG Tab PO SCH (07:31)
--- NOTE | 2018-12-17 03:50 | DISCH ---
PRIMARY DISCHARGE DIAGNOSES: 1. Sepsis due to aspiration pneumonia. 2. Right-sided pleural effusion due to pneumonia. 3. Aspiration pneumonia, improving with IV antibiotics, received 4 days of IV antibiotics, switched over to oral Augmentin yesterday and doing well. 4. Hypokalemia, then replaced with hyperkalemia, and now hypokalemia again, probably due to poor oral intake. 5. Severe malnutrition. 6. Aspiration with outpatient speech evaluation, video swallow pending, but now on a nectar thick and mechanical soft diet. 7. Essential hypertension, uncontrolled, but did refuse to take her Norvasc for several doses. 8. Anxiety and depression, on Cymbalta. 9. Chronic pain due to previous hip fracture, on once a day tramadol. 10.Chronic anemia. Hemoglobin was 9.0, improved at the time of discharge. REASON FOR ADMISSION: On the date of admission, this 83-year-old female who lives at [facility] since last year when she suffered from hip fractures was more lethargic. She was having low-grade fevers off and on during the week. She was starting to cough more. She was sent over and had a chest x- ray which was showing large effusion, probably obscuring an infiltrate and white count elevated up to 21,000. T-max during her stay here was only 100.4, but she had no further fevers after the internet marketing analyst of 12/13. She felt like her cough and breathing were improving. She even recognized me on the day before discharge. She was aware she was in [place]. She was declining her laxatives and in fact did start having a few loose stools after being on antibiotics. Her oral intake was poor. She was eating 25% or less of her meals. She had had considerable weight loss over the last year at the [facility] and had actually been initiated there on Marinol. Overall, the patient improved during her hospital stay. Potassium supplements were held and potassium trended down to 2.4, then replaced with 60 mEq given on the 15 of December and started her on Aldactone 25 daily. Decision was made to [facility] to the [facility] on no potassium supplements, but Aldactone 12.5 daily. The patient was also given IV fluids, but those were stopped as well thinking that the CHF might mildly be contributing to her effusion with her BNP up to 940. At no time did she have any chest pain. Her lactic acids were normal. Her blood cultures showed no growth. DISCHARGE PLANS AND INSTRUCTIONS: She is going back to [facility]. She will have a video swallow next week. She will have a BMP, CBC, and magnesium in 1 week. She will have PT, OT, and speech at the [facility]. She will resume her palliative care. I will see her on [facility] rounds. Aldactone 12.5 mg is the new medication for blood pressure and potassium, and she will have 1 more dose of her liquid Augmentin tonight. VITAL SIGNS: Objectively on discharge, her temperature 98.5, pulse 98, blood pressure 142/68, respiratory rate was 18, O2 was 96 on 2 L. Decision was made to send her back to [facility] on 1 L of oxygen as she recovers from pneumonia. GENERAL: She is in no acute distress. HEART: Regular rate and rhythm. S1, S2 without murmur appreciated. LUNGS: Lung sounds were decreased, especially over the right lung, but no crackles or wheezes appreciated. ABDOMEN: Nondistended, soft, nontender. EXTREMITIES: Warm, dry, but thin and frail. She has some bruising over her arms. There is no edema. MENTAL STATUS: She was alert. She was orientated x2. She was not aware of the time, but I told her it was 9 a.m. and she was sought of embarrassed that she had slept in so long. Otherwise, she did have SCDs during her stay to prevent DVT. I did start her on Lovenox yesterday given her prolonged stay. The patient was initially admitted on comfort care measures and a decision was made to continue with treatment for infection, but no escalation of care. Overall, the patient did well and is back to [facility]. Further discussion can be had with her daughter if her condition worsens again. There was even some consideration for hospice, but they were not ready for that prior to this admission, and I would like her to follow through with some therapies and speech eval before deciding on that. MKA: 12/16/2018 12:30:23 MODL: 12/17/2018 03:46:19 /[id number]
== END 2018-12-16 10:38 | DRG 871 ==
LOC: VM.ED 11:13 → VM.MS 13:21
PROVIDERS: ADMIT Internal Medicine; ATTEND Internal Medicine
DX: A41.9 Sepsis, unspecified organism (principal); J69.0 Pneumonitis due to inhalation of food and vomit; E43 Unspecified severe protein-calorie malnutrition; J90 Pleural effusion, not elsewhere classified; Z68.1 Body mass index [BMI] 19.9 or less, adult; Z51.5 Encounter for palliative care; E87.6 Hypokalemia; I10 Essential (primary) hypertension; G89.29 Other chronic pain; H26.9 Unspecified cataract; K59.00 Constipation, unspecified; D64.9 Anemia, unspecified; E87.5 Hyperkalemia; F41.8 Other specified anxiety disorders; E86.0 Dehydration; H52.4 Presbyopia; M81.0 Age-related osteoporosis without current pathological fracture; Z98.890 Other specified postprocedural states; R53.1 Weakness; F32.9 Major depressive disorder, single episode, unspecified; D52.9 Folate deficiency anemia, unspecified; Z85.3 Personal history of malignant neoplasm of breast; Z90.11 Acquired absence of right breast and nipple; Z88.8 Allergy status to other drugs, medicaments and biological substances; Z79.82 Long term (current) use of aspirin; Z79.899 Other long term (current) drug therapy
CPT/HCPCS: 36415; 71045; 80048; 83605; 83735; 85025; 87040 ×2; 96374; 99284; 99285; J0696; 80053; 81001; 83880; 84132; 92526-GN; 92610-GN; A9270-GY; J0456; J1650; J3490; J7030; J7050